=== PATIENT | female | born 1995 | race Caucasian/White ===

== ENCOUNTER → 2017-03-11 | Outpatient (CLI) | payer OTHER ==
[~2017-03-11] MED LIST: METF500T PO; METO50TA PO; TERC0.8C VAGINAL; [UNRECOGNIZED DRUG - OTHER]
== END ==
LOC: HPND 08:19
PROVIDERS: ATTEND Obstetrics & Gynecology
DX: O24.112 Pre-existing type 2 diabetes mellitus, in pregnancy, second trimester (principal); O99.212 Obesity complicating pregnancy, second trimester; E66.01 Morbid (severe) obesity due to excess calories; Z68.41 Body mass index [BMI] 40.0-44.9, adult; O10.912 Unspecified pre-existing hypertension complicating pregnancy, second trimester
CPT/HCPCS: 76811

== ENCOUNTER 2017-04-09 16:24 | Inpatient (IN) | payer OTHER ==
[~2017-04-09] VITALS: Ht 162.6 cm; Wt 107.0 kg
[2017-04-09] MEDS ORDERED: LABE100T2 PO (17:07)
--- NOTE | 2017-04-09 17:43 | HHI.HP ---
HPI Chief Complaint High blood pressures Date Seen: Apr 09, 2017 Time Seen: 17:39 Travel History International Travel<30 Days: No Contact w/Intl Traveler<30Days: No Known Affected Area: No History of Present Illness HPI Patient is a 21-year-old at 22 weeks presenting from clinic with high blood pressure. Follows with care for women. Patient denies vaginal bleeding, leakage of fluid, feeling any contractions, thinks that she feels the baby move. Patient has chronic hypertension. States that blood pressure has been controlled throughout on 100 mg labetalol twice a day Blood pressures were elevated yesterday and today. Patient's blood pressure was elevated in clinic today at 172/96. Yesterday, patient states that her blood pressure 160/101. Patient denies headache, visual disturbance, lower externa swelling. Endorses upper abdominal pain. Has had no abnormal imaging or labs. Patient has diabetes mellitus 2 controlled on metformin 500 twice a day. Patient keeps a blood glucose log, sugar levels have been within normal range. Weeks Gestation: 22 Para: 0 : 1 History Past Medical History Narrative Medical Hypertension-on 100 mg twice a day labetalol Diabetes mellitus 2-metformin 500 twice a day Past Surgical History Surgical History: No Previous Surgery Family History Family History: Negative Social History Alcohol Use: No Tobacco Use: No Substance Abuse: No Allergies-Medications (Allergen,Severity, Reaction): Coded Allergies: No Known Allergies (Unverified Adverse Reaction, Unknown, 04/09/17) Home Meds Active Scripts Metformin (Metformin) 500 Mg Tab, 500 MG PO BIDPC for Blood Sugar Management, # 60 TAB 0 Refills Prov:Colton Mcdonough MD 03/03/17 Reported Medications Labetalol (Labetalol) 100 Mg Tab, 100 MG PO BID for Blood Pressure Management, TAB 0 Refills 04/09/17 Discontinued Reported Medications Metoprolol Tartrate (Metoprolol Tartrate) 50 Mg Tab, 50 MG PO BID, #60 TAB 0 Refills 03/03/17 Discontinued Scripts Terconazole Vaginal Cream (Terconazole Vaginal Cream) 0.8 % Cream, 1 APPL VAGINAL HS for Fungal Infection, #20 GM 0 Refills For 3 days. Prov:Colton Mcdonough MD 03/03/17 Glucose Blood Strip (.[employer]stouch Ultra Blue Strip) Strip Strip, 1 EA .ROUTE DIRECTED for Blood Sugar Management, #1 BOX 3 Refills Prov:Colton Mcdonough MD 01/20/17 Review of Systems Except as stated in HPI: all other systems reviewed are Neg Physical Exam Narrative GENERAL: Well-nourished, well-developed patient. SKIN: Warm and dry. HEAD: Normocephalic and atraumatic. EYES: No scleral icterus. No injection or drainage. NECK: Supple, trachea midline. No JVD. CARDIOVASCULAR: Regular rate and rhythm without murmurs, gallops, or rubs. RESPIRATORY: Breath sounds equal bilaterally. No accessory muscle use. ABDOMEN/GI: Abdomen soft, non-tender, bowel sounds present, no rebound, no guarding GENITOURINARY: Cervix: [-] Dilatation: [-] Effacement: [-] Station: [-] Presentation: [-] Membranes: [intact or ruptured] Uterine Contractions: [-] FHT's: 1:30 EXTREMITIES: No cyanosis or edema. BACK: Nontender without obvious deformity. No CVA tenderness. NEUROLOGICAL: Awake and alert. Motor and sensory grossly within normal limits. Normal speech. Caprini VTE Risk Assessment Caprini VTE Risk Assessment: No/Low Risk (score <= 1) Caprini Risk Assessment Model Point Value = 1 Point Value = 2 Point Value = 3 Point Value = 5 Age 41-60 Minor surgery BMI > 25 kg/m2 Swollen legs Varicose veins or History of unexplained or recurrent spontaneous Oral contraceptives or hormone replacement Sepsis (< 1 month) Serious lung disease, including pneumonia (< 1 month) Abnormal pulmonary function Acute myocardial infarction Congestive heart failure (< 1 month) History of inflammatory bowel disease Medical patient at bed rest Age 61-74 Arthroscopic surgery Major open surgery (> 45 min) Laparoscopic surgery (> 45 min) Malignancy Confined to bed (> 72 hours) Immobilizing plaster cast Central venous access Age >= 75 History of VTE Family history of VTE Factor V Leiden Prothrombin [id number] Lupus anticoagulant Anticardiolipin antibodies Elevated serum homocysteine Heparin-induced thrombocytopenia Other congenital or acquired thrombophilia Stroke (< 1 month) Elective arthroplasty Hip, pelvis, or leg fracture Acute spinal cord injury (< 1 month) Prophylaxis Regimen Total Risk Factor Score Risk Level Prophylaxis Regimen 0-1 Low Early ambulation 2 Moderate Order ONE of the following: *Sequential Compression Device (SCD) *Heparin 5000 units SQ BID 3-4 Higher Order ONE of the following medications: *Heparin 5000 units SQ TID *Enoxaparin/Lovenox 40 mg SQ daily (WT < 150 kg, CrCl > 30 mL/min) *Enoxaparin/Lovenox 30 mg SQ daily (WT < 150 kg, CrCl > 10-29 mL/min) *Enoxaparin/Lovenox 30 mg SQ BID (WT < 150 kg, CrCl > 30 mL/min) AND/OR *Sequential Compression Device (SCD) 5 or more Highest Order ONE of the following medications: *Heparin 5000 units SQ TID (Preferred with Epidurals) *Enoxaparin/Lovenox 40 mg SQ daily (WT < 150 kg, CrCl > 30 mL/min) *Enoxaparin/Lovenox 30 mg SQ daily (WT < 150 kg, CrCl > 10-29 mL/min) *Enoxaparin/Lovenox 30 mg SQ BID (WT < 150 kg, CrCl > 30 mL/min) AND *Sequential Compression Device (SCD) Data Data Vital Signs Reviewed: Yes (blood pressure 149/85) Orders Orders Ob (2e) Additional Admit Info (04/09/17 16:34) Assessment/Plan Problem List: (1) Chronic hypertension ICD Codes: I10 - Essential (primary) hypertension (2) DM2 (diabetes mellitus, type 2) ICD Codes: E11.9 - Type 2 diabetes mellitus without complications (3) with 22 completed weeks gestation ICD Codes: Z3A.22 - 22 weeks gestation of (4) High blood pressure ICD Codes: I10 - Essential (primary) hypertension Assessment and Plan Patient is a 21-year-old at 22 weeks. Admitted for high blood pressure during Blood pressure today 172/96. Blood pressure taken on admission 149/85 heart tones 130, reassuring Patient not in labor 1. High BP reading Labetalol by mouth 200 mg in the a.m., 100 mg in the p.m. 2. Chronic hypertension w/IUP @22 wks Order CMP,CBC,UA, 24-hour protein,Uric acid Order ultrasound 3. Diabetes mellitus too Continue metformin 500 twice a day Order 2 hour postprandials Order A1c DW Dr. Derrick Jacinto,Erin Saenz MD R1 Apr 09, 2017 17:43
[2017-04-09] MEDS ORDERED: SODIUM CHLORIDE 0.9% FLUSH 10 ML FLUSH IV FLUSH PRN (18:00)
[2017-04-09] MEDS: LABETALOL HCL 100 MG TAB PO SCH (19:23)
[2017-04-09] MEDS: LACTATED RINGER'S 1000 ML INJ 1,000 ML IV SCH (20:17)
[2017-04-09] MEDS: metFORMIN HCL 500 MG TAB PO SCH (20:17)
[2017-04-09] MEDS: SODIUM CHLORIDE 0.9% FLUSH 10 ML FLUSH IV FLUSH SCH (20:18)
[2017-04-09 21:09] LABS: HEMATOCRIT 36.4 % (35.0-46.0); HEMOGLOBIN 12.1 GM/DL (11.6-15.3); MEAN CELL VOLUME 87.7 FL (80.0-100.0); MEAN CORPUSCULAR HEMOGLOBIN 29.2 PG (27.0-34.0); MEAN CORPUSCULAR HGB CONC 33.3 % (32.0-36.0); MEAN PLATELET VOLUME 10.7 FL (7.0-11.0); PLATELET COUNT 284 TH/MM3 (150-450); RED BLOOD COUNT 4.15 MIL/MM3 (4.00-5.30); RED CELL DISTRIBUTION WIDTH 12.5 % (11.6-17.2); WHITE BLOOD COUNT 12.1 TH/MM3 (4.0-11.0)
[2017-04-09 21:13] LABS: BACTERIA, URINE RARE /hpf; BILIRUBIN, URINE NEG (NEG); BLOOD, URINE NEG (NEG); GLUCOSE,URINE NEG (NEG); KETONE, URINE NEG (NEG); NITRITE,URINE NEG (NEG); SQUAMOUS EPITHELIAL CELL URINE 1 /hpf (0-5); URINE COLOR LIGHT-YELLOW (YELLW/STRAW); URINE LEUKOCYTE ESTERASE NEG (NEG)
[2017-04-09 21:26] LABS: ALBUMIN 2.8 GM/DL (3.4-5.0); ALT (GPT) 22 U/L (10-53); AST (GOT) 22 U/L (15-37); BICARBONATE 21.4 MEQ/L (21.0-32.0); BLOOD UREA NITROGEN 7 MG/DL (7-18); CALCIUM 9.3 MG/DL (8.5-10.1); CHLORIDE 104 MEQ/L (98-107); CREATININE 0.41 MG/DL (0.50-1.00); GLOMERULAR FILTRATION RATE 192 ML/MIN (>89); GLUCOSE,RANDOM 77 MG/DL (74-106); SODIUM (NA) 137 MEQ/L (136-145)
[2017-04-09 21:29] LABS: ALKALINE PHOSPHATASE 52 U/L (45-117); TOTAL BILIRUBIN ADULT 0.3 MG/DL (0.2-1.0); TOTAL PROTEIN 8.1 GM/DL (6.4-8.2)
[2017-04-10] MEDS: LABETALOL HCL 200 MG TAB PO SCH (05:58)
[2017-04-10] MEDS: LACTATED RINGER'S 1000 ML INJ 1,000 ML IV SCH ×2 (05:59→20:32)
[2017-04-10] MEDS: SODIUM CHLORIDE 0.9% FLUSH 10 ML FLUSH IV FLUSH SCH ×2 (07:15→21:00)
--- NOTE | 2017-04-10 08:04 | PD.OB.ANTE ---
Subjective Diagnosis: (1) Chronic hypertension Diagnosis: Principal (2) DM2 (diabetes mellitus, type 2) Diagnosis: Secondary (3) with 22 completed weeks gestation Diagnosis: Secondary Interval History Patient states that she is feeling a little bit fatigued; however, overall well. Antepartum ROS: Reports: Other (no new complaints) Objective Vital Signs Intake & Output 04/10/17 04/10/17 07:00 19:00 Intake Total 100 ml Balance 100 ml Intake Oral 100 ml Lab & Micro Results Test 04/09/17 19:55 White Blood Count 12.1 TH/MM3 Red Blood Count 4.15 MIL/MM3 Hemoglobin 12.1 GM/DL Hematocrit 36.4 % Mean Corpuscular Volume 87.7 FL Mean Corpuscular Hemoglobin 29.2 PG Mean Corpuscular Hemoglobin Concent 33.3 % Red Cell Distribution Width 12.5 % Platelet Count 284 TH/MM3 Mean Platelet Volume 10.7 FL Urine Color LIGHT-YELLOW Urine Turbidity CLEAR Urine pH 6.0 Urine Specific [place] 1.005 Urine Protein TRACE mg/dL Urine Glucose (UA) NEG mg/dL Urine Ketones NEG mg/dL Urine Occult Blood NEG Urine Nitrite NEG Urine Bilirubin NEG Urine Urobilinogen LESS THAN 2.0 MG/DL Urine Leukocyte Esterase NEG Urine Squamous Epithelial Cells 1 /hpf Urine Bacteria RARE /hpf Microscopic Urinalysis Comment CATH-CULTURE IND Blood Urea Nitrogen 7 MG/DL Creatinine 0.41 MG/DL Random Glucose 77 MG/DL Total Protein 8.1 GM/DL Albumin 2.8 GM/DL Calcium Level 9.3 MG/DL Uric Acid 4.8 MG/DL Alkaline Phosphatase 52 U/L Aspartate Amino Transf (AST/SGOT) 22 U/L Alanine Aminotransferase (ALT/SGPT) 22 U/L Total Bilirubin 0.3 MG/DL Sodium Level 137 MEQ/L Potassium Level 3.5 MEQ/L Chloride Level 104 MEQ/L Carbon Dioxide Level 21.4 MEQ/L Anion Gap 12 MEQ/L Estimat Glomerular Filtration Rate 192 ML/MIN Hemoglobin A1c 6.0 % Date/Time Source Procedure Growth Status 04/09/17 19:55 Urine Catheterized Urine Urine Culture Pending Received Physical Exam GENERAL: Well-nourished, well-developed patient. CARDIOVASCULAR: Regular rate and rhythm without murmurs, gallops, or rubs. RESPIRATORY: Breath sounds equal bilaterally. No accessory muscle use. ABDOMEN/GI: Abdomen soft, non-tender. GENITOURINARY: Deferred EXTREMITIES: No cyanosis or edema, non-tender, without signs of DVT. Assessment and Plan Problem List: (1) Chronic hypertension ICD Codes: I10 - Essential (primary) hypertension (2) DM2 (diabetes mellitus, type 2) ICD Codes: E11.9 - Type 2 diabetes mellitus without complications (3) with 22 completed weeks gestation ICD Codes: Z3A.22 - 22 weeks gestation of (4) High blood pressure ICD Codes: I10 - Essential (primary) hypertension Assessment and Plan Patient is a 21-year-old at 22 weeks. Admitted for high blood pressure during . Besides some upper abdominal pain on admission, patient is asymptomatic Blood pressure in clinic before admission 172/96. Blood pressure taken on admission 149/85 1. Chronic hypertension w/IUP @22 wks BP overnight 129/71-142/78 No signs of end organ damage based on CMP, CBC, UA Last night, started labetalol by mouth 200 mg in the a.m. and 100 mg in the p.m. Plan to monitor BP throughout today. Ultrasound and 24 hour urine protein pending 2. Diabetes mellitus 2 - controlled Continue metformin 500 twice a day 2 hour postprandial yesterday was 94 A1c of 6.0, indicating good control Discharge planning pending ultrasound and 24 hour urine protein. Will continue to monitor blood pressures. NICHOLAS Meza Update @13:08 US report @10:37: Single intrauterine in cephalic presentation Normal heart and rhythm. Normal amniotic fluid. movement observed. Transvaginal cervical length within normal limits measuring 44 mm long. No funneling observed. Patient is scheduled April 15, 2017 for echocardiogram and growth with MFM. Erin Jacinto MD R1 Apr 10, 2017 08:04
[2017-04-10] MEDS: metFORMIN HCL 500 MG TAB PO SCH ×2 (09:52→17:40)
[2017-04-10] MEDS ORDERED: INFLUENZA VIRUS VACCINE (QUADRIVALENT) 0.5 ML SYR IM ONE (10:00)
[2017-04-10] MEDS: LABETALOL HCL 100 MG TAB PO SCH (17:40)
[2017-04-10 23:20] LABS: CREATININE 24 HOUR, URINE 1.4 GM/24HR (0.63-2.50)
[2017-04-11] MEDS: LABETALOL HCL 200 MG TAB PO SCH (06:14)
--- NOTE | 2017-04-11 08:30 | PD.OB.ANTE ---
Subjective Diagnosis: (1) Chronic hypertension Diagnosis: Principal (2) DM2 (diabetes mellitus, type 2) Diagnosis: Secondary (3) with 22 completed weeks gestation Diagnosis: Secondary Interval History Patient is a 21 year old at 23 and 0/7 weeks today, EDC 08/08/2017, admitted to observation for elevated BPs. History chronic HTN on labetolol 100mg BID. Follows with [facility]. Also GDM, diet controlled. BSG reviewed and 70s to 110s fasting and max 2 hr post-prandial. Feeling well with no complaints today. Eager to go home. Antepartum ROS: Reports: movement normal, Denies: New complaints, Loss of fluid, Vaginal bleeding, Contractions Objective Lab & Micro Results Test 04/10/17 22:00 Urine Total Volume 24 Hours 3350 ML Urine Creatinine 24 Hour 1.40 GM/24HR Urine Total Protein 24 Hour 482 MG/24HR Date/Time Source Procedure Growth Status 04/09/17 19:55 Urine Catheterized Urine Urine Culture - Final 10-50,000 CFU/ML MIXED GRAM POSITIVE ... Complete Physical Exam GENERAL: Well-nourished, well-developed female in no apparent distress. CARDIOVASCULAR: Regular rate and rhythm without murmurs, gallops, or rubs. RESPIRATORY: Breath sounds equal bilaterally. No accessory muscle use. ABDOMEN/GI: Abdomen soft, non-tender. Fundus: palpates soft. GENITOURINARY: deferred External Genitalia: deferred FHT's: intermittent monitoring, category 1 tracing, HR 150s EXTREMITIES: No cyanosis or edema, non-tender, without signs of DVT. Assessment and Plan Problem List: (1) Chronic hypertension ICD Codes: I10 - Essential (primary) hypertension (2) DM2 (diabetes mellitus, type 2) ICD Codes: E11.9 - Type 2 diabetes mellitus without complications (3) with 22 completed weeks gestation ICD Codes: Z3A.22 - 22 weeks gestation of Assessment and Plan Patient is a 21-year-old at 23 weeks 0/7 days gestation. Chronic HTN. Gestational DM. Admitted for high blood pressure during . Asymptomatic today. Blood pressure in clinic before admission 172/96. Blood pressure taken on admission 149/85. 1. Chronic hypertension w/IUP @23 wks BP overnight 140s/80s No signs of end organ damage based on CMP, CBC, UA 24 hr urine protein 482 US showing single IUP, no noted abnormalities, normal cervical length, recommendation for echo per preliminary report Last night, started labetalol by mouth 200 mg in the a.m. and 100 mg in the p.m. BP controlled on this regimen Continue routine care with [facility] 2. Diabetes mellitus 2 - diet-controlled Continue metformin 500 twice a day Fasting and 2 hour postprandial BSG wnl A1c of 6.0, indicating good control Discharge planning: likely discharge today with scheduled OB US April 15, 2017. Close OB follow up. Will require regular BPPs with NST scheduled in third trimester. Maryann Treviño Dr., MD R2 Apr 11, 2017 08:30
[2017-04-11] MEDS: metFORMIN HCL 500 MG TAB PO SCH (08:47)
--- NOTE | 2017-04-11 08:59 | HHI.DCPOC ---
Discharge Care Plan Diagnosis: (1) Chronic hypertension (2) DM2 (diabetes mellitus, type 2) (3) with 22 completed weeks gestation Report Symptoms to Your Doctor -Temperature above 100.5 degrees -Redness, of incision or excessive or foul smelling drainage -Unusual pain or calf pain -Increased vaginal bleeding -Painful or difficulty urinating -Feelings of extreme sadness or anxiety after 2 weeks Goals to Promote Your Health * To prevent worsening of your condition and complications * To maintain your health at the optimal level Directions to Meet Your Goals Take your medications as prescribed Follow your dietary instruction Follow activity as directed Ensure plenty of rest for recovery Drink fluids for hydration Keep your appointments as scheduled Take your immunizations and boosters as scheduled If your symptoms worsen call your PCP, if no PCP go to Urgent Care Center or Emergency Room Smoking is Dangerous to Your Health. Avoid second hand smoke Call the 24-hour crisis hotline for domestic abuse at Maryann King MD R2 Apr 11, 2017 08:59
[2017-04-11] MEDS ORDERED: LABE100T2 PO (09:01)
[2017-04-28] MEDS ORDERED: METF500T PO (13:06)
== END 2017-04-11 09:41 | disposition home or self-care (01) | DRG 781 ==
LOC: HOBED 16:24 → H2EA 16:38
PROVIDERS: ADMIT Obstetrics & Gynecology Maternal & Fetal Medicine; ATTEND Obstetrics & Gynecology Maternal & Fetal Medicine
DX: O10.912 Unspecified pre-existing hypertension complicating pregnancy, second trimester (principal); O24.112 Pre-existing type 2 diabetes mellitus, in pregnancy, second trimester; Z3A.23 23 weeks gestation of pregnancy; Z23 Encounter for immunization; Z79.84 Long term (current) use of oral hypoglycemic drugs; E11.9 Type 2 diabetes mellitus without complications
CPT/HCPCS: 76815; 76817; 80053; 81001; 82570; 82948; 83036; 84157; 84550; 85027; 87086; 90686; J7120; Q2038

== ENCOUNTER → 2017-04-15 | Outpatient (CLI) | payer OTHER ==
[~2017-04-15] MED LIST changes: +LABE100T2 PO; -METO50TA PO; -TERC0.8C VAGINAL; -[UNRECOGNIZED DRUG - OTHER]
== END ==
LOC: HPND 08:14
PROVIDERS: ATTEND Obstetrics & Gynecology
DX: O24.112 Pre-existing type 2 diabetes mellitus, in pregnancy, second trimester (principal); O10.012 Pre-existing essential hypertension complicating pregnancy, second trimester; O99.212 Obesity complicating pregnancy, second trimester; E66.01 Morbid (severe) obesity due to excess calories; Z68.41 Body mass index [BMI] 40.0-44.9, adult
CPT/HCPCS: 76816; 76825; 76827; 93325

== ENCOUNTER → 2017-05-08 | Outpatient (CLI) | payer OTHER | LOC: CDED 10:17 | PROVIDERS: ATTEND Obstetrics & Gynecology | DX: O24.113 Pre-existing type 2 diabetes mellitus, in pregnancy, third trimester (principal) | CPT/HCPCS: 97802 ==

== ENCOUNTER → 2017-05-13 | Outpatient (CLI) | payer OTHER | LOC: HPND 09:16 | PROVIDERS: ATTEND Obstetrics & Gynecology | DX: O24.112 Pre-existing type 2 diabetes mellitus, in pregnancy, second trimester (principal); O10.012 Pre-existing essential hypertension complicating pregnancy, second trimester; O99.212 Obesity complicating pregnancy, second trimester; E66.01 Morbid (severe) obesity due to excess calories; Z68.41 Body mass index [BMI] 40.0-44.9, adult | CPT/HCPCS: 76816 ==

== ENCOUNTER 2017-06-18 09:28 | Observation (INO) | payer OTHER ==
[~2017-06-18] VITALS: Ht 162.6 cm; Wt 106.6 kg
[2017-06-18] VITALS (69 sets, daily range): BP systolic 133–181; BP diastolic 63–101; PULSE 77–89; RESP 17–18; TEMP 98.7
[2017-06-18] MEDS ORDERED: SODIUM CHLORIDE 0.9% FLUSH 10 ML FLUSH IV FLUSH PRN (10:30)
[2017-06-18] MEDS ORDERED: LABETALOL HCL 200 MG TAB PO ONE ×2 (10:30→18:30)
--- NOTE | 2017-06-18 10:33 | PD ---
HPI Chief Complaint Sent by OB diagnostics due to high blood pressure Travel History International Travel<30 Days: No Contact w/Intl Traveler<30Days: No History of Present Illness HPI Patient is a 21-year-old at 32/5 presents today from OB diagnostics due to high blood pressure. Patient has a past history of DM II, chronic hypertension. Currently she reports that she has had 2 headaches in the past 4 days, had spots in her vision on Thursday which has since resolved, mild right upper abdominal pain which has been present for most of the . Denies large gushes of fluid, contractions, bloody or abnormal colored/smelling discharge, dysuria, hematuria. Reports that her urine has been darker for the past week, states she drinks approximately 1.5 gallons of water a day, and notes that her urine has been "bubbly" for this past week as well. Denies nausea, vomiting, fever, chills, chest pain, shortness of breath. No other complaints at this time. Weeks Gestation: 32 Para: 0 : 1 Miscarriage: 0 : 0 History Past Medical History Narrative Medical DM II HTN Past Surgical History Surgical History: No Previous Surgery Family History Narrative Family History HTN-father DM-maternal grandparents Social History Alcohol Use: No Tobacco Use: No Substance Abuse: No Allergies-Medications (Allergen,Severity, Reaction): Coded Allergies: No Known Allergies (Unverified Allergy, Unknown, 06/18/17) Home Meds Active Scripts Labetalol (Labetalol) 100 Mg Tab, 100 MG PO DIRECTED for Blood Pressure Management, #90 TAB 1 Refill Take 200mg (two tabs) in the morning, and take 100mg (one tab) at night. Prov:Colton Mcdonough MD 05/12/17 Metformin (Metformin) 500 Mg Tab, 500 MG PO BIDPC for Blood Sugar Management, # 60 TAB 0 Refills Prov:Colton Mcdonough MD 04/28/17 Review of Systems General / Constitutional: No: Fever, Chills Eyes: Visual changes (Spots in vision 3 days ago), No: Diploplia, Blurred Vision Cardiovascular: No: Irregular Rhythm, Chest Pain or Discomfort, Palpitations, Syncope Respiratory: No: Cough, Short of Breath, Wheezing Gastrointestinal: No: Nausea, Vomiting, Diarrhea, Abdominal Pain, Hematemesis, Hematochezia, Constipation, Changes in Bowel Habits, Indigestion Genitourinary: Other ("bubbly urine" x 1 week), No: Urgency, Frequency, Dysuria , Nocturia, Hematuria Musculoskeletal: No: Limited ROM, Weakness Skin: No Rash, No Itching, No Dryness Neurologic: No: Weakness, Dizziness Psychiatric: No: Anxiety, Depression Endocrine: No: Polydipsia, Polyuria Hematologic/Lymphatic: No Lymph Node Enlargement Physical Exam Narrative GENERAL: Well-nourished, well-developed patient. SKIN: Warm and dry. HEAD: Normocephalic and atraumatic. EYES: No scleral icterus. No injection or drainage. ENT: No nasal drainage noted. Mucous membranes pink. Airway patent. NECK: Supple, trachea midline. No JVD. CARDIOVASCULAR: Regular rate and rhythm without murmurs, gallops, or rubs. RESPIRATORY: Breath sounds equal bilaterally. No accessory muscle use. ABDOMEN/GI: Abdomen soft, non-tender, bowel sounds present, no rebound, no guarding GENITOURINARY: External Genitalia: intact and normal in appearance FHT's: Category: 1 Baseline: 140 Reactive: Yes Variability: Moderate Decels: None EXTREMITIES: No cyanosis or edema. BACK: Nontender without obvious deformity. No CVA tenderness. NEUROLOGICAL: Awake and alert. Motor and sensory grossly within normal limits. Five out of 5 muscle strength in all muscle groups. Normal speech. Data Data Vital Signs Reviewed: Yes Orders Orders Labetalol (Trandate) (06/18/17 10:30) ^ Saline Lock (06/18/17 10:22) Vital Signs (Adult) .ON ADMISSION (06/18/17 10:22) ^ Labor Status (06/18/17 10:22) Heart (06/18/17 10:22) Urinalysis - C+S If Indicated (06/18/17 10:22) ^ Non Stress Test (06/18/17 10:22) ^ Hydration (06/18/17 10:22) Cbc No Diff, Includes Plts (06/18/17 10:22) Comprehensive Metabolic Panel (06/18/17 10:22) Ob/Psych Drug Screen, Urine (06/18/17 10:22) Group B Strep: Negative MDM Plan Patient is a 21-year-old at 32/5 who presents for elevated blood pressures from OB diagnostics. Patient continued to have elevated blood pressures in the OB ED. Past elevated 24 hour urine protein 482 on 04/10/17. Without severe signs/symptoms of preeclampsia today. H/H 13.6/38.0, platelets 232, AST 20, ALT 30, UA with trace protein. -admit for observation -Follow-up 24 hour urine protein collection -monitor FHT -FHT category 1, reassuring -Encourage p.o. hydration DW Dr. Donald Diagnosis Diagnosis: Primary Impression: Pre-eclampsia superimposed on chronic hypertension, antepartum Additional Impression: 32 weeks gestation of Vinay Flores MD R1 Jun 18, 2017 10:33
[2017-06-18] MEDS ORDERED: CALCIUM GLUCONATE 10% 1 GM/10 ML VIAL IV PUSH PRN (11:00)
[2017-06-18 11:09] LABS: HEMOGLOBIN 13.6 GM/DL (11.6-15.3); MEAN CORPUSCULAR HEMOGLOBIN 30.3 PG (27.0-34.0); MEAN CORPUSCULAR HGB CONC 35.7 % (32.0-36.0); MEAN PLATELET VOLUME 10.8 FL (7.0-11.0); PLATELET COUNT 232 TH/MM3 (150-450); RED BLOOD COUNT 4.47 MIL/MM3 (4.00-5.30); RED CELL DISTRIBUTION WIDTH 12.6 % (11.6-17.2); WHITE BLOOD COUNT 10.8 TH/MM3 (4.0-11.0)
[2017-06-18 11:15] LABS: BACTERIA, URINE RARE /hpf; BILIRUBIN, URINE NEG (NEG); BLOOD, URINE NEG (NEG); GLUCOSE,URINE NEG (NEG); KETONE, URINE NEG (NEG); MUCUS URINE FEW /lpf (OCC); NITRITE,URINE NEG (NEG); PH, URINE 5.5 (5.0-8.5); SQUAMOUS EPITHELIAL CELL URINE 2 /hpf (0-5); URINE COLOR YELLOW (YELLW/STRAW); URINE LEUKOCYTE ESTERASE NEG (NEG)
[2017-06-18 11:24] LABS: ALBUMIN 2.6 GM/DL (3.4-5.0); ALT (GPT) 30 U/L (10-53); AST (GOT) 20 U/L (15-37); BICARBONATE 21.6 MEQ/L (21.0-32.0); BLOOD UREA NITROGEN 10 MG/DL (7-18); CALCIUM 8.9 MG/DL (8.5-10.1); CHLORIDE 106 MEQ/L (98-107); CREATININE 0.51 MG/DL (0.50-1.00); GLOMERULAR FILTRATION RATE 149 ML/MIN (>89); GLUCOSE,RANDOM 102 MG/DL (74-106); SODIUM (NA) 137 MEQ/L (136-145)
[2017-06-18 11:26] LABS: ALKALINE PHOSPHATASE 74 U/L (45-117); TOTAL BILIRUBIN ADULT 0.3 MG/DL (0.2-1.0); TOTAL PROTEIN 7.5 GM/DL (6.4-8.2)
[2017-06-18] MEDS: LACTATED RINGER'S 1000 ML INJ 1,000 ML IV SCH (11:49)
--- NOTE | 2017-06-18 12:06 | HHI.HP ---
History & Physical H&P HPI HPI Chief Complaint Sent by OB diagnostics due to high blood pressure Travel History International Travel<30 Days: No Contact w/Intl Traveler<30Days: No History of Present Illness HPI Patient is a 21-year-old at 32/5 presents today from OB diagnostics due to high blood pressure. Patient has a past history of DM II, chronic hypertension. Currently she reports that she has had 2 headaches in the past 4 days, had spots in her vision on Thursday which has since resolved, mild right upper abdominal pain which has been present for most of the . Denies large gushes of fluid, contractions, bloody or abnormal colored/smelling discharge, dysuria, hematuria. Reports that her urine has been darker for the past week, states she drinks approximately 1.5 gallons of water a day, and notes that her urine has been "bubbly" for this past week as well. Denies nausea, vomiting, fever, chills, chest pain, shortness of breath. No other complaints at this time. Weeks Gestation: 32 Para: 0 : 1 Miscarriage: 0 : 0 History (Limited) History Past Medical History Narrative Medical DM II HTN Past Surgical History Surgical History: No Previous Surgery Family History Narrative Family History HTN-father DM-maternal grandparents Social History Alcohol Use: No Tobacco Use: No Substance Abuse: No Allergies-Medications Allergies-Medications (Allergen,Severity, Reaction): Coded Allergies: No Known Allergies (Unverified Allergy, Unknown, 06/18/17) Home Meds Active Scripts Labetalol (Labetalol) 100 Mg Tab, 100 MG PO DIRECTED for Blood Pressure Management, #90 TAB 1 Refill Take 200mg (two tabs) in the morning, and take 100mg (one tab) at night. Prov:Colton Mcdonough MD 05/12/17 Metformin (Metformin) 500 Mg Tab, 500 MG PO BIDPC for Blood Sugar Management, # 60 TAB 0 Refills Prov:Colton Mcdonough MD 04/28/17 ROS Review of Systems General / Constitutional: No: Fever, Chills Eyes: Visual changes (Spots in vision 3 days ago), No: Diploplia, Blurred Vision Cardiovascular: No: Irregular Rhythm, Chest Pain or Discomfort, Palpitations, Syncope Respiratory: No: Cough, Short of Breath, Wheezing Gastrointestinal: No: Nausea, Vomiting, Diarrhea, Abdominal Pain, Hematemesis, Hematochezia, Constipation, Changes in Bowel Habits, Indigestion Genitourinary: Other ("bubbly urine" x 1 week), No: Urgency, Frequency, Dysuria , Nocturia, Hematuria Musculoskeletal: No: Limited ROM, Weakness Skin: No Rash, No Itching, No Dryness Neurologic: No: Weakness, Dizziness Psychiatric: No: Anxiety, Depression Endocrine: No: Polydipsia, Polyuria Hematologic/Lymphatic: No Lymph Node Enlargement Physical Exam Physical Exam Narrative GENERAL: Well-nourished, well-developed patient. SKIN: Warm and dry. HEAD: Normocephalic and atraumatic. EYES: No scleral icterus. No injection or drainage. ENT: No nasal drainage noted. Mucous membranes pink. Airway patent. NECK: Supple, trachea midline. No JVD. CARDIOVASCULAR: Regular rate and rhythm without murmurs, gallops, or rubs. RESPIRATORY: Breath sounds equal bilaterally. No accessory muscle use. ABDOMEN/GI: Abdomen soft, non-tender, bowel sounds present, no rebound, no guarding GENITOURINARY: External Genitalia: intact and normal in appearance FHT's: Category: 1 Baseline: 140 Reactive: Yes Variability: Moderate Decels: None EXTREMITIES: No cyanosis or edema. BACK: Nontender without obvious deformity. No CVA tenderness. NEUROLOGICAL: Awake and alert. Motor and sensory grossly within normal limits. Five out of 5 muscle strength in all muscle groups. Normal speech. Data Data Data Vital Signs Reviewed: Yes Orders Orders Labetalol (Trandate) (06/18/17 10:30) ^ Saline Lock (06/18/17 10:22) Vital Signs (Adult) .ON ADMISSION (06/18/17 10:22) ^ Labor Status (06/18/17 10:22) Heart (06/18/17 10:22) Urinalysis - C+S If Indicated (06/18/17 10:22) ^ Non Stress Test (06/18/17 10:22) ^ Hydration (06/18/17 10:22) Cbc No Diff, Includes Plts (06/18/17 10:22) Comprehensive Metabolic Panel (06/18/17 10:22) Ob/Psych Drug Screen, Urine (06/18/17 10:22) Group B Strep: Negative MDM MDM Plan Patient is a 21-year-old at 32/5 who presents for elevated blood pressures from OB diagnostics. Patient continued to have elevated blood pressures in the OB ED. Past elevated 24 hour urine protein 482 on 04/10/17. Without severe signs/symptoms of preeclampsia today. H/H 13.6/38.0, platelets 232, AST 20, ALT 30, UA with trace protein. -admit for observation -Follow-up 24 hour urine protein collection -monitor FHT -FHT category 1, reassuring -Encourage p.o. hydration DM -Continue home metformin HTN -Continue home labetalol NICHOLAS Donald Diagnosis Diagnosis: Primary Impression: Pre-eclampsia superimposed on chronic hypertension, antepartum Additional Impression: 32 weeks gestation of Vinay Flores MD R1 Jun 18, 2017 12:06
[2017-06-18] MEDS ORDERED: LABETALOL HCL 100 MG/20 ML VIAL ONE (13:14)
[2017-06-18] MEDS: LABETALOL HCL 100 MG TAB PO SCH (14:50)
[2017-06-18] MEDS ORDERED: LABETALOL HCL 100 MG/20 ML VIAL IV PUSH ONE ×3 (15:00→16:45)
[2017-06-18] MEDS ORDERED: PREN29TA PO (15:02)
[2017-06-18] MEDS ORDERED: LABETALOL HCL 100 MG/20 ML VIAL IV ONE (15:15)
[2017-06-18] MEDS: BETAMETHASONE SOD PHOS/ACETATE SUSP 30 MG/5 ML VIAL IM SCH (16:41)
[2017-06-18] MEDS: metFORMIN HCL 500 MG TAB PO SCH (18:14)
[2017-06-18] MEDS: SODIUM CHLORIDE 0.9% FLUSH 10 ML FLUSH IV FLUSH SCH (21:00)
[2017-06-18 21:58] LABS: ALBUMIN 2.5 GM/DL (3.4-5.0); ALT (GPT) 32 U/L (10-53); AST (GOT) 18 U/L (15-37); BICARBONATE 19.9 MEQ/L (21.0-32.0); BLOOD UREA NITROGEN 12 MG/DL (7-18); CALCIUM 9.5 MG/DL (8.5-10.1); CHLORIDE 106 MEQ/L (98-107); GLOMERULAR FILTRATION RATE 89 ML/MIN (>89); GLUCOSE,RANDOM 131 MG/DL (74-106); SODIUM (NA) 137 MEQ/L (136-145)
[2017-06-18 22:01] LABS: ALKALINE PHOSPHATASE 74 U/L (45-117); TOTAL BILIRUBIN ADULT 0.3 MG/DL (0.2-1.0); TOTAL PROTEIN 7.2 GM/DL (6.4-8.2)
[2017-06-18 22:47] LABS: BASOPHIL % 0.2 % (0.0-2.0); EOSINOPHIL % 0.1 % (0.0-4.0); HEMATOCRIT 38.1 % (35.0-46.0); HEMOGLOBIN 13.2 GM/DL (11.6-15.3); LYMPH % 12.9 % (9.0-44.0); LYMPHOCYTE # 1.5 TH/MM3 (1.0-4.8); MEAN CELL VOLUME 86.7 FL (80.0-100.0); MEAN CORPUSCULAR HEMOGLOBIN 30.1 PG (27.0-34.0); MEAN CORPUSCULAR HGB CONC 34.7 % (32.0-36.0); MEAN PLATELET VOLUME 11.3 FL (7.0-11.0); MONO % 2.3 % (0.0-8.0); MONOCYTE # 0.3 TH/MM3 (0-0.9); NEUT % 84.5 % (16.0-70.0); PLATELET COUNT 235 TH/MM3 (150-450); RED BLOOD COUNT 4.39 MIL/MM3 (4.00-5.30); RED CELL DISTRIBUTION WIDTH 12.9 % (11.6-17.2); WHITE BLOOD COUNT 11.8 TH/MM3 (4.0-11.0)
[2017-06-19] VITALS (35 sets, daily range): BP systolic 123–159; BP diastolic 62–90; PULSE 81–93; RESP 16–18; TEMP 97.8–98.4
[2017-06-19 06:15] LABS: AUTOMATED NEUTROPHIL # 9.9 TH/MM3 (1.8-7.7); BASOPHIL % 0.1 % (0.0-2.0); HEMATOCRIT 36.7 % (35.0-46.0); HEMOGLOBIN 12.6 GM/DL (11.6-15.3); LYMPH % 15.1 % (9.0-44.0); LYMPHOCYTE # 1.8 TH/MM3 (1.0-4.8); MEAN CELL VOLUME 85.9 FL (80.0-100.0); MEAN CORPUSCULAR HEMOGLOBIN 29.5 PG (27.0-34.0); MEAN CORPUSCULAR HGB CONC 34.4 % (32.0-36.0); MEAN PLATELET VOLUME 11.3 FL (7.0-11.0); MONO % 2.8 % (0.0-8.0); MONOCYTE # 0.3 TH/MM3 (0-0.9); PLATELET COUNT 232 TH/MM3 (150-450); RED BLOOD COUNT 4.28 MIL/MM3 (4.00-5.30); RED CELL DISTRIBUTION WIDTH 12.8 % (11.6-17.2); WHITE BLOOD COUNT 12.1 TH/MM3 (4.0-11.0)
[2017-06-19 06:33] LABS: ALBUMIN 2.4 GM/DL (3.4-5.0); ALT (GPT) 29 U/L (10-53); AST (GOT) 17 U/L (15-37); BICARBONATE 21.3 MEQ/L (21.0-32.0); BLOOD UREA NITROGEN 12 MG/DL (7-18); CALCIUM 8.9 MG/DL (8.5-10.1); CHLORIDE 107 MEQ/L (98-107); CREATININE 0.56 MG/DL (0.50-1.00); GLOMERULAR FILTRATION RATE 134 ML/MIN (>89); GLUCOSE,RANDOM 126 MG/DL (74-106); SODIUM (NA) 140 MEQ/L (136-145)
[2017-06-19 06:36] LABS: ALKALINE PHOSPHATASE 69 U/L (45-117); TOTAL BILIRUBIN ADULT 0.2 MG/DL (0.2-1.0)
[2017-06-19] MEDS: SODIUM CHLORIDE 0.9% FLUSH 10 ML FLUSH IV FLUSH SCH (07:48)
[2017-06-19] MEDS: LABETALOL HCL 200 MG TAB PO SCH ×2 (08:00→08:28)
[2017-06-19] MEDS: MULTIVIT/MIN/PREN/FOL AC/IRON PRENATAL TAB PO SCH (08:27)
[2017-06-19] MEDS: metFORMIN HCL 500 MG TAB PO SCH ×2 (08:27→18:06)
[2017-06-19] MEDS: LACTATED RINGER'S 1000 ML INJ 1,000 ML IV SCH ×2 (08:28→18:06)
[2017-06-19] MEDS ORDERED: LABETALOL HCL 200 MG TAB PO ONE (08:30)
--- NOTE | 2017-06-19 08:59 | PD.OB.ANTE ---
Subjective Diagnosis: (1) 32 weeks gestation of Diagnosis: Principal Interval History Patient seen and examined this morning by OB team. Patient's BP remains elevated requiring multiple doses of Labetalol overnight. Otherwise no acute events overnight. She endorses good movement and denies any vaginal bleeding, vaginal discharge, loss of fluid, right upper quadrant pain, neurologic symptoms, or dysuria. Patient has continued with 24-hour urine collection which will be completed at 1000 today. Otherwise she has no complaints and denies any fevers, chills, shortness breath, chest pain, NVD, vomiting, or calf tenderness. Antepartum ROS: Reports: movement normal, Denies: New complaints, Loss of fluid, Vaginal bleeding, Contractions Objective Vital Signs Vital Signs Date Time Temp Pulse Resp B/P (MAP) Pulse Ox O2 Delivery O2 Flow Rate FiO2 06/19/17 01:02 92 128/64 (85) 06/19/17 01:00 98.4 18 06/19/17 00:01 93 132/79 (96) 06/18/17 23:01 87 147/86 (106) 06/18/17 22:18 80 143/80 (101) 06/18/17 22:01 83 149/88 (108) 06/18/17 21:35 18 06/18/17 21:01 79 133/68 (89) 06/18/17 20:01 81 133/68 (89) 06/18/17 19:58 79 138/63 (88) 06/18/17 19:35 98.7 06/18/17 19:30 82 18 06/18/17 19:30 139/68 (91) 06/18/17 19:27 82 156/91 (112) 06/18/17 18:01 81 160/94 (116) 06/18/17 18:00 98.7 17 06/18/17 17:16 80 173/99 (123) 06/18/17 17:15 81 06/18/17 17:10 81 06/18/17 17:05 83 06/18/17 17:00 79 161/86 (111) 06/18/17 16:55 77 06/18/17 16:52 79 151/85 (107) 06/18/17 16:50 79 06/18/17 16:46 78 181/101 (127) 06/18/17 16:45 83 3/8/18 16:40 83 06/18/17 16:35 87 06/18/17 16:31 79 169/93 (118) 06/18/17 16:30 84 06/18/17 16:25 79 06/18/17 16:20 79 06/18/17 16:16 83 170/95 (120) 06/18/17 16:15 87 06/18/17 16:10 81 06/18/17 16:05 82 06/18/17 16:01 80 173/96 (121) 06/18/17 16:00 80 06/18/17 15:55 81 06/18/17 15:54 84 173/97 (122) 06/18/17 15:50 80 06/18/17 15:46 80 162/91 (114) 06/18/17 15:45 79 06/18/17 15:40 79 06/18/17 15:35 87 06/18/17 15:31 84 162/96 (118) 06/18/17 15:30 86 06/18/17 15:25 85 06/18/17 15:20 84 06/18/17 15:16 85 168/91 (116) 06/18/17 15:15 88 06/18/17 15:01 88 165/85 (111) 06/18/17 15:00 87 06/18/17 14:55 86 06/18/17 14:50 85 06/18/17 14:46 89 171/82 (111) 06/18/17 14:37 88 166/83 (110) 06/18/17 14:37 18 06/18/17 14:09 83 150/74 (99) 06/18/17 14:06 85 168/83 (111) 06/18/17 14:01 85 152/80 (104) 06/18/17 13:56 83 147/72 (97) 06/18/17 13:51 83 140/70 (93) 06/18/17 13:46 83 139/76 (97) 06/18/17 13:41 84 137/75 (95) 06/18/17 13:35 85 136/72 (93) 06/18/17 13:35 17 06/18/17 13:32 81 139/75 (96) 06/18/17 13:02 78 172/94 (120) 06/18/17 13:00 18 06/18/17 11:45 18 06/18/17 11:40 78 157/95 (115) 06/18/17 10:46 79 165/101 (122) 06/18/17 10:31 83 144/90 (108) 06/18/17 10:21 82 148/86 (106) Lab & Micro Results Test 06/18/17 09:56 06/18/17 10:22 06/18/17 21:00 06/19/17 04:21 Urine Color YELLOW Urine Turbidity CLEAR Urine pH 5.5 Urine Specific [place] 1.009 Urine Protein TRACE mg/dL Urine Glucose (UA) NEG mg/dL Urine Ketones NEG mg/dL Urine Occult Blood NEG Urine Nitrite NEG Urine Bilirubin NEG Urine Urobilinogen LESS THAN 2.0 MG/DL Urine Leukocyte Esterase NEG Urine WBC LESS THAN 1 /hpf Urine Squamous Epithelial Cells 2 /hpf Urine Bacteria RARE /hpf Urine Mucus FEW /lpf Microscopic Urinalysis Comment CULT NOT INDICATED Urine Opiates Screen NEG Urine Barbiturates Screen NEG Urine Amphetamines Screen NEG Urine Benzodiazepines Screen NEG Urine Cocaine Screen NEG Urine Cannabinoids Screen NEG White Blood Count 10.8 TH/MM3 11.8 TH/MM3 12.1 TH/MM3 Red Blood Count 4.47 MIL/MM3 4.39 MIL/MM3 4.28 MIL/MM3 Hemoglobin 13.6 GM/DL 13.2 GM/DL 12.6 GM/DL Hematocrit 38.0 % 38.1 % 36.7 % Mean Corpuscular Volume 85.0 FL 86.7 FL 85.9 FL Mean Corpuscular Hemoglobin 30.3 PG 30.1 PG 29.5 PG Mean Corpuscular Hemoglobin Concent 35.7 % 34.7 % 34.4 % Red Cell Distribution Width 12.6 % 12.9 % 12.8 % Platelet Count 232 TH/MM3 235 TH/MM3 232 TH/MM3 Mean Platelet Volume 10.8 FL 11.3 FL 11.3 FL Blood Urea Nitrogen 10 MG/DL 12 MG/DL 12 MG/DL Creatinine 0.51 MG/DL 0.80 MG/DL 0.56 MG/DL Random Glucose 102 MG/DL 131 MG/DL 126 MG/DL Total Protein 7.5 GM/DL 7.2 GM/DL 7.0 GM/DL Albumin 2.6 GM/DL 2.5 GM/DL 2.4 GM/DL Calcium Level 8.9 MG/DL 9.5 MG/DL 8.9 MG/DL Alkaline Phosphatase 74 U/L 74 U/L 69 U/L Aspartate Amino Transf (AST/SGOT) 20 U/L 18 U/L 17 U/L Alanine Aminotransferase (ALT/SGPT) 30 U/L 32 U/L 29 U/L Total Bilirubin 0.3 MG/DL 0.3 MG/DL 0.2 MG/DL Sodium Level 137 MEQ/L 137 MEQ/L 140 MEQ/L Potassium Level 3.9 MEQ/L 4.0 MEQ/L 3.7 MEQ/L Chloride Level 106 MEQ/L 106 MEQ/L 107 MEQ/L Carbon Dioxide Level 21.6 MEQ/L 19.9 MEQ/L 21.3 MEQ/L Anion Gap 9 MEQ/L 11 MEQ/L 12 MEQ/L Estimat Glomerular Filtration Rate 149 ML/MIN 89 ML/MIN 134 ML/MIN Neutrophils (%) (Auto) 84.5 % 82.0 % Lymphocytes (%) (Auto) 12.9 % 15.1 % Monocytes (%) (Auto) 2.3 % 2.8 % Eosinophils (%) (Auto) 0.1 % 0.0 % Basophils (%) (Auto) 0.2 % 0.1 % Neutrophils # (Auto) 10.0 TH/MM3 9.9 TH/MM3 Lymphocytes # (Auto) 1.5 TH/MM3 1.8 TH/MM3 Monocytes # (Auto) 0.3 TH/MM3 0.3 TH/MM3 Eosinophils # (Auto) 0.0 TH/MM3 0.0 TH/MM3 Basophils # (Auto) 0.0 TH/MM3 0.0 TH/MM3 CBC Comment DIFF FINAL DIFF FINAL Differential Comment Uric Acid 6.6 MG/DL 7.0 MG/DL Physical Exam GENERAL: Well-nourished, well-developed patient. CARDIOVASCULAR: Regular rate and rhythm without murmurs, gallops, or rubs. RESPIRATORY: Breath sounds equal bilaterally. No accessory muscle use. ABDOMEN/GI: Abdomen soft, non-tender. Fundus: 32 FHT's: Category: 1 Baseline: 140s Reactive: Positive Variability: Moderate Decels: None EXTREMITIES: No cyanosis or edema, non-tender, without signs of DVT. Assessment and Plan Problem List: (1) 32 weeks gestation of ICD Codes: Z3A.32 - 32 weeks gestation of Status: Acute Assessment and Plan 21-year-old at 32/6 admitted for elevated blood pressures from OB diagnostics.Past elevated 24 hour urine protein 482 on 04/10/17. Without severe signs/symptoms of preeclampsia today. H/H 13.6/38.0, platelets 232, AST 20, ALT 30, UA with trace protein. 1. Pre-eclampsia evaluation -Admit for observation -Follow-up 24 hour urine protein collection today at 1000 -Second dose of betamethasone scheduled today for 1700 -FHT category 1, reassuring -Platelets 232 -LFTs WNL -Uric acid 8.9 -Plan to re-evaluate patient after steroids and urine protein collection today for future medical management 2. Type 2 DM -Continue home metformin -BG checks TID -Carb. consistent diet 3. Chronic HTN -Patient has required multiple doses of Labetalol during hospitalizations for BP elevations -Patient given 400mg PO 06/19/17 -Plan to titrate up dosing as indicated DW: Sean Justin MD R2 Jun 19, 2017 08:59
[2017-06-19] MEDS: LABETALOL HCL 100 MG TAB PO SCH (16:40)
[2017-06-19] MEDS: BETAMETHASONE SOD PHOS/ACETATE SUSP 30 MG/5 ML VIAL IM SCH (16:40)
[2017-06-19] MEDS ORDERED: LABETALOL HCL 300 MG TAB PO ONE (18:00)
[2017-06-20 01:55] VITALS: BP 130/69; PULSE 91
[2017-06-20 02:00] VITALS: RESP 18; TEMP 98.1
[2017-06-20 06:11] VITALS: BP 135/71; PULSE 84
--- NOTE | 2017-06-20 06:29 | PD.OB.ANTE ---
Subjective Diagnosis: (1) 32 weeks gestation of Diagnosis: Principal Interval History Patient seen and examined this morning by OB team. Patient's Labetalol increased to 400mg BID. BP ranged from 123/62-159/90, with the most recent BP at 130/69. Otherwise no acute events overnight. She endorses good movement and denies any vaginal bleeding, vaginal discharge, loss of fluid, right upper quadrant pain, neurologic symptoms, or dysuria. Patient has continued with 24-hour urine collection showed 695mg. Otherwise she has no complaints and denies any fevers, chills, shortness breath, chest pain, NVD, vomiting, or calf tenderness. Antepartum ROS: Reports: movement normal, Denies: New complaints, Loss of fluid, Vaginal bleeding, Contractions (Sean Swartz MD R2) Objective Vital Signs Vital Signs Date Time Temp Pulse Resp B/P (MAP) Pulse Ox O2 Delivery O2 Flow Rate FiO2 06/20/17 02:00 98.1 18 06/20/17 01:55 91 130/69 (89) 06/19/17 22:51 81 123/62 (82) 06/19/17 21:17 136/71 (92) 06/19/17 21:17 87 06/19/17 20:13 82 143/79 (100) 06/19/17 20:01 83 141/75 (97) 06/19/17 20:00 98.2 06/19/17 19:01 82 158/85 (109) 06/19/17 18:01 82 157/87 (110) 06/19/17 17:01 82 151/81 (104) 06/19/17 17:00 17 06/19/17 17:00 97.9 06/19/17 16:01 84 156/80 (105) 06/19/17 16:00 18 06/19/17 15:01 83 158/84 (108) 06/19/17 14:01 86 159/90 (113) 06/19/17 14:00 16 06/19/17 13:01 84 140/80 (100) 06/19/17 13:00 16 06/19/17 12:15 98.2 06/19/17 12:01 86 148/83 (104) 06/19/17 12:00 17 06/19/17 11:01 82 144/81 (102) 06/19/17 11:00 18 06/19/17 10:06 86 154/88 (110) 06/19/17 09:01 81 146/84 (104) 06/19/17 08:44 17 06/19/17 08:36 97.8 06/19/17 08:01 83 150/86 (107) Lab & Micro Results Test 06/19/17 10:00 Urine Total Volume 24 Hours 2850 ML Urine Total Protein 24 Hour 695 MG/24HR Physical Exam GENERAL: Well-nourished, well-developed patient. CARDIOVASCULAR: Regular rate and rhythm without murmurs, gallops, or rubs. RESPIRATORY: Breath sounds equal bilaterally. No accessory muscle use. ABDOMEN/GI: Abdomen soft, non-tender. Fundus: 32 weeks EXTREMITIES: No cyanosis or edema, non-tender, without signs of DVT. Reflexes WNL. (Sean Swartz MD R2) Assessment and Plan Problem List: (1) 32 weeks gestation of ICD Codes: Z3A.32 - 32 weeks gestation of Status: Acute Assessment and Plan 21-year-old at 32/6 admitted for elevated blood pressures from OB diagnostics.Past elevated 24 hour urine protein 482 on 04/10/17. Without severe signs/symptoms of preeclampsia today. H/H 13.6/38.0, platelets 232, AST 20, ALT 30, UA with trace protein. 1. Pre-eclampsia evaluation -Admitted for observation -24 hour urine protein collection: 695mg -Labs on 06/19 show normal platelets, LFTs -Betamethasone completed 06/18, 06/19 -NST this AM 2. Type 2 DM -Continue home metformin -BG checks TID -Carb. consistent diet 3. Chronic HTN -Labetalol increased to 400mg BID -BP ranged from 123/62-159/90, with the most recent BP at 130/69 Patient to be discharged home with Labetalol 400mg BID pending reactive NST. Patient to follow up with [facility] within the week. Patient given instructions on when to return to the ED including but not limited to elevated home BP, vision changes, recurrent headache, neurologic symptoms, loss of fluid, or contractions. DW: Dr. Enamorado (Sean Swartz MD R2) Assessment and Plan Patient seen and evaluated with resident under direct supervision, agree with assessment and plan. (Jarod Enamorado MD) Sean Swartz MD R2 Jun 20, 2017 06:29 Jarod Enamorado MD Jun 22, 2017 07:32
[2017-06-20 07:44] VITALS: BP 157/88; PULSE 78; TEMP 97.8
[2017-06-20] MEDS ORDERED: LABETALOL HCL 300 MG TAB PO SCH (08:00)
[2017-06-20] MEDS ORDERED: LABETALOL HCL 100 MG TAB PO SCH (08:00)
[2017-06-20] MEDS: MULTIVIT/MIN/PREN/FOL AC/IRON PRENATAL TAB PO SCH (08:28)
[2017-06-20] MEDS: metFORMIN HCL 500 MG TAB PO SCH (08:28)
[2017-06-20 12:13] VITALS: RESP 18
[2017-06-20 12:14] VITALS: BP 138/78; PULSE 81
[2017-06-20] MEDS ORDERED: LABE200T2 PO (12:49)
--- NOTE | 2017-06-20 12:57 | PD.OB.ANTE ---
Subjective Diagnosis: (1) 32 weeks gestation of Diagnosis: Principal (2) High blood pressure (3) Chronic hypertension (4) DM2 (diabetes mellitus, type 2) Interval History pt. in bed w/o c/o. have bp taken and 130's/80's. denies jordan/visual distrubances, no n/v, no cp/sb. Objective Vital Signs Vital Signs Date Time Temp Pulse Resp B/P (MAP) Pulse Ox O2 Delivery O2 Flow Rate FiO2 06/20/17 12:13 18 06/20/17 07:44 78 157/88 (111) 06/20/17 07:44 97.8 06/20/17 06:11 84 135/71 (92) 06/20/17 02:00 98.1 18 06/20/17 01:55 91 130/69 (89) 06/19/17 22:51 81 123/62 (82) 06/19/17 21:17 136/71 (92) 06/19/17 21:17 87 06/19/17 20:13 82 143/79 (100) 06/19/17 20:01 83 141/75 (97) 06/19/17 20:00 98.2 06/19/17 19:01 82 158/85 (109) 06/19/17 18:01 82 157/87 (110) 06/19/17 17:01 82 151/81 (104) 06/19/17 17:00 17 06/19/17 17:00 97.9 06/19/17 16:01 84 156/80 (105) 06/19/17 16:00 18 06/19/17 15:01 83 158/84 (108) 06/19/17 14:01 86 159/90 (113) 06/19/17 14:00 16 06/19/17 13:01 84 140/80 (100) 06/19/17 13:00 16 Physical Exam GENERAL: Well-nourished, well-developed patient. CARDIOVASCULAR: Regular rate and rhythm without murmurs, gallops, or rubs. RESPIRATORY: Breath sounds equal bilaterally. No accessory muscle use. ABDOMEN/GI: Abdomen soft, non-tender, gravid GENITOURINARY: FHT's: Category: 1 Reactive:+ Variability: mod Decels: none EXTREMITIES: No cyanosis or edema, non-tender, without signs of DVT. Assessment and Plan Problem List: (1) 32 weeks gestation of ICD Codes: Z3A.32 - 32 weeks gestation of Status: Acute (2) High blood pressure ICD Codes: I10 - Essential (primary) hypertension (3) DM2 (diabetes mellitus, type 2) ICD Codes: E11.9 - Type 2 diabetes mellitus without complications (4) Chronic hypertension ICD Codes: I10 - Essential (primary) hypertension Status: Chronic Assessment and Plan 21-year-old at 32/6 admitted for elevated blood pressures from OB diagnostics. pt. w/ chronic htn controlled w/ 400mg labetalol bid. pt. to continue. pt. to also continue metformin 100mg for type 2 dm. pt. to be d/c to home. given precautions for return. all ? answered. f/u w/ ob diagnostics as sched and ob. Bill Donald Jr., MD Jun 20, 2017 12:57
== END 2017-06-20 13:11 | disposition home or self-care (01) ==
LOC: HOBED 09:28 → H2EA 11:16
PROVIDERS: ADMIT Obstetrics & Gynecology; ATTEND Obstetrics & Gynecology
DX: O26.893 Other specified pregnancy related conditions, third trimester (principal); R03.0 Elevated blood-pressure reading, without diagnosis of hypertension; R10.11 Right upper quadrant pain; R51 Headache; O24.913 Unspecified diabetes mellitus in pregnancy, third trimester; Z3A.32 32 weeks gestation of pregnancy; Z79.84 Long term (current) use of oral hypoglycemic drugs
CPT/HCPCS: 80053; 80307; 81001; 82948; 84157; 84550; 85025; 85027; 96361; 96374; 96376; 99285; G0378; G0481; J0702; J7120

== ENCOUNTER 2017-07-21 11:49 | Inpatient (IN) | payer OTHER ==
[2017-07-21] VITALS (90 sets, daily range): BP systolic 113–193; BP diastolic 55–115; PULSE 18–98; RESP 18–20; TEMP 97.6–97.8; O2SAT 97–99
[~2017-07-21] VITALS: Ht 162.6 cm; Wt 107.0 kg
[2017-07-21] MEDS: LACTATED RINGER'S 1000 ML INJ 1,000 ML IV SCH ×2 (08:00→12:18)
[~2017-07-21 11:49] MED LIST changes: +LABE200T2 PO; +PREN29TA PO
[2017-07-21] MEDS ORDERED: ePHEDrine/NS 25 MG/5 ML SYRINGE IV ONE (12:00)
[2017-07-21] MEDS ORDERED: ceFAZolin INJ 1,000 MG VIAL IV ONE (12:00)
[2017-07-21] MEDS ORDERED: PHENYLEPH/NS 1000 MCG/10 ML SYR IV ONE (12:00)
[2017-07-21] MEDS ORDERED: DEXAMETHASONE SOD PHOS 4 MG/ML VIAL IV ONE (12:00)
[2017-07-21] MEDS ORDERED: OXYTOCIN 10 UNIT/ML AMP IV ONE (12:00)
[2017-07-21] MEDS ORDERED: ONDANSETRON HCL 4 MG/2 ML VIAL IV ONE (12:00)
[2017-07-21] MEDS ORDERED: LACTATED RINGER'S 1000 ML INJ 1,000 ML IV PRN (12:18)
[2017-07-21] MEDS ORDERED: MAGNESIUM SULFATE 40 GM PREMIX 1,000 ML ONE (12:18)
[2017-07-21] MEDS ORDERED: MAGNESIUM SULFATE 4 GM PREMIX 100 ML ONE (12:18)
[2017-07-21] MEDS ORDERED: LABETALOL HCL 100 MG/20 ML VIAL ONE (12:19)
[2017-07-21] MEDS ORDERED: LABETALOL HCL 100 MG/20 ML VIAL IV PUSH PRN ×4 (12:30→14:45)
[2017-07-21] MEDS ORDERED: CALCIUM GLUCONATE 10% 1 GM/10 ML VIAL IV PUSH PRN (12:30)
[2017-07-21] MEDS ORDERED: CITRIC ACID-SODIUM CITRATE LIQ 30 ML UDC PO SCH (12:30)
[2017-07-21] MEDS ORDERED: ACETAMINOPHEN 325 MG TAB PO PRN (12:30)
[2017-07-21] MEDS ORDERED: SODIUM CHLORID 0.9% 500 ML INJ 500 ML IV PRN (12:30)
[2017-07-21] MEDS ORDERED: LIDOCAINE HCL 1% 20 ML VIAL I-DERMAL PRN (12:30)
[2017-07-21] MEDS ORDERED: SODIUM CHLORIDE 0.9% FLUSH 10 ML FLUSH IV FLUSH PRN ×2 (12:30→16:00)
[2017-07-21] MEDS ORDERED: ONDANSETRON HCL 4 MG/2 ML VIAL IV PUSH PRN ×2 (12:30→16:00)
[2017-07-21] MEDS ORDERED: MAGNESIUM SULFATE 4 GM PREMIX 100 ML IV ONE (12:30)
[2017-07-21] MEDS ORDERED: SODIUM CHLOR 0.9% 1000 ML INJ 1,000 ML IV PRN (12:38)
[2017-07-21 12:53] LABS: HEMATOCRIT 37.3 % (35.0-46.0); HEMOGLOBIN 13.2 GM/DL (11.6-15.3); MEAN CELL VOLUME 85.4 FL (80.0-100.0); MEAN CORPUSCULAR HEMOGLOBIN 30.1 PG (27.0-34.0); MEAN CORPUSCULAR HGB CONC 35.2 % (32.0-36.0); PLATELET COUNT 239 TH/MM3 (150-450); RED BLOOD COUNT 4.37 MIL/MM3 (4.00-5.30); RED CELL DISTRIBUTION WIDTH 13.5 % (11.6-17.2); WHITE BLOOD COUNT 11.8 TH/MM3 (4.0-11.0)
[2017-07-21 12:55] LABS: BACTERIA, URINE RARE /hpf; BILIRUBIN, URINE NEG (NEG); BLOOD, URINE NEG (NEG); GLUCOSE,URINE NEG (NEG); KETONE, URINE NEG (NEG); MUCUS URINE FEW /lpf (OCC); NITRITE,URINE NEG (NEG); PH, URINE 5.5 (5.0-8.5); SQUAMOUS EPITHELIAL CELL URINE <1 /hpf (0-5); TRANSITIONAL EPI CELLS, URINE <1 /hpf; URINE COLOR LIGHT-YELLOW (YELLW/STRAW); URINE LEUKOCYTE ESTERASE NEG (NEG)
--- NOTE | 2017-07-21 13:00 | PD ---
HPI Chief Complaint headache, blurry vision Date Seen: Jul 21, 2017 Time Seen: 12:00 (Ole Samuels MD R1) Travel History International Travel<30 Days: No Contact w/Intl Traveler<30Days: No Known Affected Area: No (Ole Samuels MD R1) History of Present Illness HPI Ms Ken is a 21YO at 37/3 weeks w/PMHx of Chronic HTN and DM type 2 diagnosed about a year ago who presents with elevated BP to 190/111, headache, blurry vision with seeing spots, intermittent SOB and CP over the past day, and pain in bilateral LEs. Pt has been treated during with Labetalol 400mg BID for HTN and her DM was diet controlled until when she began Metformin 500mg BID. Pt is not taking aspirin. Reports some vomiting last week but none this week. There has been some intermittent leakage of fluid, but no vaginal bleeding. Pt had OB US 06/18/17 wnl including BPP 10/10; however, SHILPI low at 8.3 and placentomegaly noted with request for TORCH Titers. Could not find evidence of such titers available in the record. Protein 695 on 06/19/17. Pt denies dizziness, N/V/D, dysuria today. Weeks Gestation: 37 Para: 0 : 1 Miscarriage: 0 : 0 (Ole Samuels MD R1) History Past Medical History Narrative Medical Chronic HTN Diabetes mellitus type 2 (Ole Samuels MD R1) Obstetric History Obstetric History (Ole Samuels MD R1) Past Surgical History Surgical History: No Previous Surgery (Ole Samuels MD R1) Family History Narrative Family History Father and Mother both with HTN and DM (Ole Samuels MD R1) Social History Alcohol Use: No Tobacco Use: No Substance Abuse: No (Ole Samuels MD R1) Allergies-Medications (Allergen,Severity, Reaction): Coded Allergies: No Known Allergies (Unverified Allergy, Unknown, 06/18/17) Home Meds Active Scripts Labetalol (Labetalol) 200 Mg Tab, 400 MG PO BID for Blood Pressure Management for 30 Days, #120 TAB 3 Refills Prov:Bill Donald Jr., MD 06/20/17 Labetalol (Labetalol) 100 Mg Tab, 100 MG PO DIRECTED for Blood Pressure Management, #90 TAB 1 Refill Take 200mg (two tabs) in the morning, and take 100mg (one tab) at night. Prov:Colton Mcdonough MD 05/12/17 Metformin (Metformin) 500 Mg Tab, 500 MG PO BIDPC for Blood Sugar Management, # 60 TAB 0 Refills Prov:Colton Mcdonough MD 04/28/17 Reported Medications Vit-Iron Carbonyl ( Plus Iron 29-1 mg) 29 Mg Iron-1 Mg Tab, 1 TAB PO DAILY for Nutritional Supplement, #30 TAB 0 Refills 06/18/17 Review of Systems General / Constitutional: Fever, Chills Eyes: Blurred Vision, Visual changes (spots) HENT: Headaches (past day or two), No: Lightheadedness Cardiovascular: Chest Pain or Discomfort (intermittent CP), No: Palpitations, Syncope Respiratory: Short of Breath, No: Cough Gastrointestinal: Vomiting (last week), No: Nausea, Diarrhea, Abdominal Pain, Constipation Genitourinary: Discharge (some leakage of fluid), No: Dysuria, Vaginal Bleeding Musculoskeletal: Pain (in LEs), No: Edema Skin: No Rash Neurologic: Headache, No: Dizziness, Seizures (Ole Samuels MD R1) Physical Exam T- 97.9 / BP 190/111 / HR 93 / RR 18 Narrative GENERAL: Well-nourished, well-developed patient. SKIN: Warm and dry. HEAD: Normocephalic and atraumatic. EYES: No scleral icterus. No injection or drainage. ENT: No nasal drainage noted. Mucous membranes pink. Airway patent. NECK: Supple, trachea midline. No JVD. CARDIOVASCULAR: Regular rate and rhythm without murmurs, gallops, or rubs. RESPIRATORY: Breath sounds equal bilaterally. No accessory muscle use. BREASTS: Bilateral exam showed no masses , no retractions, no nipple discharge. ABDOMEN/GI: Abdomen soft, non-tender, bowel sounds present, no rebound, no guarding Gravid to 37 weeks size GENITOURINARY: External Genitalia: intact and normal in appearance Cervix: closed, thick, high Dilatation: 0 Effacement: 0 Station: - Presentation: - Membranes: intact Uterine Contractions: absent FHT's: Category: 1 Baseline: 140 Reactive: yes Variability: moderate Decels: absent EXTREMITIES: No cyanosis or edema. BACK: Nontender without obvious deformity. No CVA tenderness. NEUROLOGICAL: Awake and alert. Motor and sensory grossly within normal limits. No hyperreflexia. Five out of 5 muscle strength in all muscle groups. Normal speech. (Ole Samuels MD R1) Data Data Vital Signs Reviewed: Yes Orders Orders Magnesium Sulfate 40 Gm Premix (Magnesiu (07/21/17 12:18) Magnesium Sulfate 4 Gm Premix (Magnesium (07/21/17 12:18) Labetalol Inj (Trandate Inj) (07/21/17 12:19) Admit To Inpatient (07/21/17 ) Code Status (07/21/17:18) Vital Signs (Adult) Q5MX4,Q15MX4,Q30MX2,Q1H (07/21/17:18) Resp Pulse Oximetry (07/21/17 ) Activity Bed Rest (07/21/17 12:18) Intake + Output Q1H (07/21/17 12:18) Notify Parameters (07/21/17 12:18) Heart CONTINUOUS (07/21/17 12:18) Urinary Catheter Management LIZETTE.Q8H (07/21/17 12:18) ^ Check Deep Tendon Reflexes Q1H (07/21/17 12:18) Diet Npo (07/21/17 Lunch) Lactated Ringer's 1000 Ml Inj (Lr 1000 M (07/21/17 12:18) Sodium Chloride 0.9% Flush (Ns Flush) (07/21/17 12:30) Sodium Chloride 0.9% Flush (Ns Flush) (07/21/17 21:00) Magnesium Sulfate 40 Gm Premix (Magnesiu (07/21/17 12:18) Labetalol Inj (Trandate Inj) (07/21/17 12:30) Calcium Gluconate Inj (Calcium Gluconate (07/21/17 12:30) Acetaminophen (Tylenol) (07/21/17 12:30) Ondansetron Inj (Zofran Inj) (07/21/17 12:30) Cbc No Diff, Includes Plts (07/21/17 12:18) Comprehensive Metabolic Panel (07/21/17 12:18) Uric Acid (07/21/17 12:18) Urinalysis - C+S If Indicated (07/21/17 12:18) Magnesium Sulfate 4 Gm Premix (Magnesium (07/21/17 12:30) Lactated Ringer's 1000 Ml Inj (Lr 1000 M (07/21/17 12:18) Sodium Chlorid 0.9% 500 Ml Inj (Ns 500 M (07/21/17 12:30) Sodium Chlor 0.9% 1000 Ml Inj (Ns 1000 M (07/21/17 12:38) Lidocaine 1% Inj (50 Ml) (Xylocaine 1% I (07/21/17 12:30) Citric Acid-Sodium Citrate Liq (Bicitra (07/21/17 12:30) Fentanyl Inj (Fentanyl Inj) (07/21/17 12:30) Fentanyl Inj (Fentanyl Inj) (07/21/17 12:30) Hold Clot (07/21/17 12:18) Abo/Rh Blood Type (07/21/17 12:18) Ob/Psych Drug Screen, Urine (07/21/17:18) ^ Epidural / Intrathecal Infus (07/21/17 12:18) Inpatient Certification (07/21/17 ) Protein Creat Ratio, Random Ur (07/21/17 12:18) Group B Beta Strep Scrn (Gbs) (07/21/17 12:26) (Ole Samuels MD R1) MDM Medical Record Reviewed: Yes Narrative Course / MDM 21YO at 37/3 weeks with PMHx HTN and DM type 2 presents with chronic HTN with severe features. Admitting for BP elevated to 190/111 on admission, with neurologic sxs of WEAVER, blurry vision. Cervical exam closed, thick and long. FHT reassuring with BL 148, 1. IUP -Monitor and toco -Hold NPO for now -ABO -GBS pending -Bed rest -LR IVF per protocol -Tylenol PRN 2. Chronic HTN with severe features -Labetalol 20mg IV push once, continue dosing per protocol as indicated -Mag sulfate 4gm loading dose IV -Mag sulfate 2gm/hr -Calcium gluconate PRN -Labs: cbc, cmp, UDS, uric acid, UA, Protein/Cr ratio -Zofran 4mg IV q6h nausea 3. DM type II -Holding home dose -SSI -Accuchecks qid while awake Pt seen and dw Hernando Anne and Debbie King (Ole Samuels MD R1) Collaborating MD Comments 21 yo at 37 weeks gestation presents with significant elevation in blood pressure 190/112, headache, visual changes, and upper abdominal pain. She has known chronic hypertension on labetalol 400mg bid and pregestational diabetes presently on metformin. Normal labs except elevation in prot/creat ration, and proteinuria. Blood pressure has been difficult to manage. She was started on magnesium sulfate on admission with an additional dose of 20, then 40, then 80 mg of IV labetalol to reach an acceptable bp range. Cervix is closed, long, high, posterior and not amenable to induction of labor. Plan primary due to chtn with severe superimposed preeclampsia with blood pressures that have been difficult to control, remote from delivery. (Nayeli Anne MD) Ole Samuels MD R1 Jul 21, 2017 13:00 Nayeli Anne MD Jul 21, 2017 14:47
[2017-07-21] MEDS: MAGNESIUM SULFATE 40 GM PREMIX 1,000 ML IV SCH (13:13)
[2017-07-21 13:20] LABS: ALBUMIN 2.4 GM/DL (3.4-5.0); AST (GOT) 18 U/L (15-37); BICARBONATE 20.7 MEQ/L (21.0-32.0); BLOOD UREA NITROGEN 13 MG/DL (7-18); CALCIUM 8.9 MG/DL (8.5-10.1); CHLORIDE 110 MEQ/L (98-107); GLOMERULAR FILTRATION RATE 124 ML/MIN (>89); GLUCOSE,RANDOM 134 MG/DL (74-106); SODIUM (NA) 139 MEQ/L (136-145)
[2017-07-21 13:21] LABS: ALT (GPT) 23 U/L (10-53)
[2017-07-21 13:23] LABS: ALKALINE PHOSPHATASE 97 U/L (45-117); TOTAL BILIRUBIN ADULT 0.2 MG/DL (0.2-1.0); TOTAL PROTEIN 7.3 GM/DL (6.4-8.2)
[2017-07-21] MEDS ORDERED: MORPHINE SULFATE PF 5 MG/10 ML VIAL ONE (14:57)
[2017-07-21] MEDS ORDERED: OXYTOCIN 30 UNITS-500ML PREMIX 500 ML IV ONE (16:00)
[2017-07-21] MEDS ORDERED: SIMETHICONE 80 MG CHEWABLE TAB PO PRN (16:00)
[2017-07-21] MEDS ORDERED: oxyCODONE/ACETAMINOPHEN 5 MG/325 MG TAB PO PRN (16:00)
--- NOTE | 2017-07-21 16:05 | PD.OB.DELI ---
Procedure Note Section Procedure Pre Op Diagnosis: (1) DM2 (diabetes mellitus, type 2) (2) Chronic hypertension (3) 37 weeks gestation of (4) Severe preeclampsia Post Op Diagnosis: Performed by Nayeli Anne Procedure: Primary Low Transverse Sec Indication for delivery: Maternal medical problems Informed consent obtained: For anesthesia, For procedure Confirmed correct: Time-out taken Anesthesia: Spinal Medication prior to procedure: Antacids, Antibiotics, IV, Magnesium Sulfate Urinary catheter: Inserted using sterile technique, To dependent drainage Sterile preparation: Duraprep Position: Supine with wedge to left side Operative Features Skin Incision: Pfannenstiel Uterine Incision: Low transverse w/knife / blunt ext Membranes Ruptured: Artificially, Appearance of fluid (clear, minimal amount) Presentation: Occiput anterior Delivery date: Jul 21, 2017 Delivery time: 15:29 Delivery of infant: Uneventful Infant: Male One Minute : 8 Five Minute : 9 Weight: 2310 Status of infant: Viable Placenta delivered: Intact, Sent to pathology Medications: Antibiotics Estimated blood loss: 600cc Procedure tolerated: Well Maternal Condition: Stable Condition: Stable Nayeli Anne MD Jul 21, 2017 16:05
--- NOTE | 2017-07-21 16:39 | MP ---
cc: Nayeli Anne MD DATE OF OPERATION: 07/21/2017 DATE OF PROCEDURE: 07/21/2017 SURGEON: Nayeli Anne MD PREOPERATIVE DIAGNOSES: 1. 37 weeks gestation. 2. Severe preeclampsia superimposed upon chronic hypertension. 3. Noncompliant with care. 4. Pregestational type 2 diabetes. POSTOPERATIVE DIAGNOSES: 1. 37 weeks gestation. 2. Severe preeclampsia superimposed upon chronic hypertension. 3. Noncompliant with care. 4. Pregestational type 2 diabetes. PROCEDURE PERFORMED: Primary low transverse section without extension. ESTIMATED BLOOD LOSS: 600 mL. ANESTHESIA: Spinal. COMPLICATIONS: None. DRAINS: Shin to gravity. COUNTS: Correct x3. FINDINGS: 1. Normal uterus, tubes and ovaries. 2. Clear minimal amniotic fluid. 3. Infant male, vertex presentation. Apgars were 8 and 9. Baby weighed 2310 grams, which is 5 pounds, 2 ounces. PATHOLOGY: Placenta. DESCRIPTION OF PROCEDURE: The patient was taken back to the operating room, prepped and draped in the usual sterile fashion, placed in dorsal supine position with a wedge to her left side. After adequate anesthetic was administered, a Pfannenstiel incision was made in the skin and taken down to the fascia. The fascia was nicked in the midline and extended bilaterally and taken off the rectus muscles. The muscles were divided in the midline. Anterior peritoneum was entered. Vesicouterine peritoneum was taken down. A transverse hysterotomy incision was made bluntly and extended bilaterally. The infant was delivered to the operative field. The rest of the body was delivered and handed off to the resuscitation team for subsequent care. Nuchal cord x1 was reduced prior to delivery. A 45-second cord clamping delayed before delivery of the placenta, which was intact. Endometrium was curetted with a moist laparotomy sponge and the hysterotomy incision was repaired using a running locking #1 chromic suture with good hemostasis at closure. Gutters were rendered free of all blood and clot material. The abdominal musculature was plicated together in midline with a #1 chromic suture and then a #1 PDS was used to close the fascia. Subcuticular suture was placed with a 3-0 Monocryl. The patient tolerated the procedure well and was taken back to the recovery room in good condition. MD JORGE Carson/KAYCE , 04:08 PM , 04:38 PM
[2017-07-21] MEDS: INSULIN ASPART SUPPLEMENTAL SCALE SQ SCH ×2 (17:00→21:00)
[2017-07-21] MEDS ORDERED: CEFAZOLIN INJ 2,000 MG in SODIUM CHLORIDE 0.9% INJ 100 ML IV SCH (17:00)
[2017-07-21] MEDS ORDERED: EPIDURAL-DIPHENHYDRAMINE HCL 50 MG CAP PO PRN (18:30)
[2017-07-21] MEDS ORDERED: EPIDURAL-DO NOT ADMINISTER ANTICOAGULANTS PRN (18:30)
[2017-07-21] MEDS ORDERED: EPIDURAL-NALOXONE HCL 0.4 MG/ML AMP IV PUSH PRN (18:30)
[2017-07-21] MEDS ORDERED: EPIDURAL-NO SYSTEMIC NARCOTICS PRN (18:30)
[2017-07-21] MEDS ORDERED: EPIDURAL-DIPHENHYDRAMINE HCL 50 MG/ML VIAL IV PUSH PRN (18:30)
[2017-07-21] MEDS ORDERED: SODIUM CHLORIDE 0.9% FLUSH 10 ML FLUSH IV FLUSH SCH (21:00)
[2017-07-21] MEDS ORDERED: OXYTOCIN 30 UNITS-500ML PREMIX 500 ML IV PRN (21:00)
[2017-07-21] MEDS: SODIUM CHLORIDE 0.9% FLUSH 10 ML FLUSH IV FLUSH SCH (21:00)
[2017-07-21] MEDS: CEFAZOLIN INJ 2,000 MG in SODIUM CHLORIDE 0.9% INJ 100 ML IV SCH (23:17)
[2017-07-22] VITALS (70 sets, daily range): BP systolic 111–160; BP diastolic 70–93; PULSE 83–95; RESP 16–18; TEMP 97.2–99; O2SAT 96–99
[2017-07-22] MEDS: LACTATED RINGER'S 1000 ML INJ 1,000 ML IV SCH ×3 (04:50→14:58)
[2017-07-22 05:54] LABS: AUTOMATED NEUTROPHIL # 13.8 TH/MM3 (1.8-7.7); BASOPHIL % 0.2 % (0.0-2.0); HEMATOCRIT 35.6 % (35.0-46.0); LYMPH % 15.9 % (9.0-44.0); LYMPHOCYTE # 2.9 TH/MM3 (1.0-4.8); MEAN CELL VOLUME 87.2 FL (80.0-100.0); MEAN CORPUSCULAR HEMOGLOBIN 29.3 PG (27.0-34.0); MEAN CORPUSCULAR HGB CONC 33.7 % (32.0-36.0); MEAN PLATELET VOLUME 11.7 FL (7.0-11.0); MONOCYTE # 1.2 TH/MM3 (0-0.9); NEUT % 76.9 % (16.0-70.0); PLATELET COUNT 228 TH/MM3 (150-450); RED BLOOD COUNT 4.08 MIL/MM3 (4.00-5.30); RED CELL DISTRIBUTION WIDTH 13.6 % (11.6-17.2)
[2017-07-22 06:30] LABS: ALKALINE PHOSPHATASE 80 U/L (45-117); ALT (GPT) 20 U/L (10-53); AST (GOT) 20 U/L (15-37); BICARBONATE 21.5 MEQ/L (21.0-32.0); BLOOD UREA NITROGEN 11 MG/DL (7-18); CALCIUM 7.6 MG/DL (8.5-10.1); CHLORIDE 103 MEQ/L (98-107); CREATININE 0.63 MG/DL (0.50-1.00); GLOMERULAR FILTRATION RATE 117 ML/MIN (>89); GLUCOSE,RANDOM 116 MG/DL (74-106); MAGNESIUM 5.1 MG/DL (1.5-2.5); SODIUM (NA) 135 MEQ/L (136-145); TOTAL BILIRUBIN ADULT 0.2 MG/DL (0.2-1.0); TOTAL PROTEIN 6.2 GM/DL (6.4-8.2)
[2017-07-22] MEDS: CEFAZOLIN INJ 2,000 MG in SODIUM CHLORIDE 0.9% INJ 100 ML IV SCH (07:08)
[2017-07-22] MEDS: INSULIN ASPART SUPPLEMENTAL SCALE SQ SCH ×4 (08:00→21:00)
[2017-07-22] MEDS: MAGNESIUM SULFATE 40 GM PREMIX 1,000 ML IV SCH (08:13)
[2017-07-22] MEDS: SODIUM CHLORIDE 0.9% FLUSH 10 ML FLUSH IV FLUSH SCH ×2 (09:00→21:00)
[2017-07-22] MEDS: MULTIVIT/MIN/PREN/FOL AC/IRON PRENATAL TAB PO SCH (09:21)
--- NOTE | 2017-07-22 09:52 | HHI.OB ---
Subjective Post Operative Day: 1 Remarks Ms Ken had some nausea and vomiting last night that has resolved this morning. She is POD#1 from her C/S. Pain is controlled, is tolerating PO, voiding and some flatus but no BM yet. She is on bed rest until the Mag sulfate is completed this afternoon. BP has been controlled overnight and there are no headaches or visual changes or disturbances this morning. She tried last night to breastfeed but felt that the baby did not latch on as expected. Baby was taken to the nursery last night due to the mother's nausea and vomiting, but she requested her baby be brought up to the room this morning. Denies CP, SOB, N /V/D, dizziness, or pain from surgical site. Objective Vitals/I&O Vital Signs Date Time Temp Pulse Resp B/P (MAP) Pulse Ox O2 Delivery O2 Flow Rate FiO2 07/22/17 08:50 87 99 07/22/17 08:45 88 99 07/22/17 08:40 87 99 07/22/17 08:35 88 98 07/22/17 08:30 89 99 07/22/17 08:25 85 98 07/22/17 08:20 84 98 07/22/17 08:15 84 99 07/22/17 08:10 85 97 07/22/17 08:00 18 07/22/17 08:00 85 132/76 (94) 07/22/17 07:17 98.2 07/22/17 07:00 18 07/22/17 07:00 85 137/78 (97) 07/22/17 06:00 84 18 134/82 (99) 07/22/17 05:01 85 133/82 (99) 07/22/17 04:49 18 07/22/17 04:00 87 18 120/72 (88) 07/22/17 04:00 98.0 07/22/17 03:00 87 18 128/82 (97) 07/22/17 02:00 86 142/93 (109) 07/22/17 01:49 18 07/22/17 01:49 18 07/22/17 01:01 84 142/86 (104) 07/22/17 01:00 18 07/22/17 01:00 18 07/22/17 00:20 83 97 07/22/17 00:15 85 98 07/22/17 00:10 85 97 07/22/17 00:05 87 98 07/22/17 00:00 18 07/22/17 00:00 97.2 07/22/17 00:00 87 111/75 (87) 97 07/22/17 00:00 87 07/21/17 23:55 88 97 07/21/17 23:50 87 98 07/21/17 23:45 88 98 07/21/17 23:40 86 97 07/21/17 23:35 86 98 07/21/17 23:30 85 97 07/21/17 23:25 84 97 07/21/17 23:20 87 98 07/21/17 23:15 87 97 07/21/17 23:10 88 98 07/21/17 23:05 88 97 07/21/17 23:01 86 113/71 (85) 07/21/17 23:00 86 97 07/21/17 23:00 18 07/21/17 22:55 98 07/21/17 22:55 87 07/21/17 22:50 98 07/21/17 22:50 86 07/21/17 22:45 85 07/21/17 22:45 97 07/21/17 22:40 91 07/21/17 22:40 98 07/21/17 22:35 87 07/21/17 22:35 97 07/21/17 22:30 86 97 07/21/17 22:25 83 97 07/21/17 22:20 80 97 07/21/17 22:15 85 97 07/21/17 22:10 87 97 07/21/17 22:05 84 98 07/21/17 22:01 84 137/67 (90) 07/21/17 22:00 98 07/21/17 21:59 18 07/21/17 21:01 81 127/75 (92) 07/21/17 21:00 18 07/21/17 20:01 79 132/82 (99) 07/21/17 20:00 97.7 18 07/21/17 19:01 77 143/85 (104) 07/21/17 18:49 18 07/21/17 18:48 76 141/83 (102) 07/21/17 17:26 79 133/93 (106) 07/21/17 17:07 148/76 (100) 07/21/17 17:00 20 98 07/21/17 17:00 97.6 07/21/17 17:00 76 07/21/17 17:00 156/89 (111) 07/21/17 16:45 143/72 (95) 07/21/17 16:45 74 18 98 07/21/17 16:28 18 18 121/65 (83) 98 07/21/17 16:28 75 07/21/17 16:12 70 18 07/21/17 16:12 98 07/21/17 16:11 124/61 (82) 07/21/17 16:00 74 20 115/55 (75) 98 07/21/17 15:58 97.8 07/21/17 14:51 90 179/105 (129) 07/21/17 14:50 93 07/21/17 14:45 88 07/21/17 14:41 87 160/99 (119) 07/21/17 14:40 86 07/21/17 14:40 87 07/21/17 14:35 85 07/21/17 14:35 85 07/21/17 14:31 79 146/92 (110) 07/21/17 14:30 80 07/21/17 14:30 80 07/21/17 14:25 78 07/21/17 14:25 99 07/21/17 14:25 78 07/21/17 14:21 81 147/86 (106) 07/21/17 14:20 81 07/21/17 14:20 82 07/21/17 14:20 99 07/21/17 14:15 99 07/21/17 14:15 81 07/21/17 14:15 80 07/21/17 14:11 81 143/88 (106) 07/21/17 14:10 80 07/21/17 14:10 80 07/21/17 14:05 82 07/21/17 14:05 83 07/21/17 14:01 84 156/94 (114) 07/21/17 14:00 84 07/21/17 14:00 84 07/21/17 13:59 84 150/87 (108) 07/21/17 13:55 82 07/21/17 13:55 81 07/21/17 13:50 84 07/21/17 13:50 85 07/21/17 13:45 79 07/21/17 13:40 80 07/21/17 13:40 79 07/21/17 13:35 82 07/21/17 13:35 83 07/21/17 13:31 87 165/100 (121) 07/21/17 13:30 85 07/21/17 13:30 85 07/21/17 13:21 85 165/97 (119) 07/21/17 13:20 85 07/21/17 13:20 84 07/21/17 13:15 85 07/21/17 13:15 85 07/21/17 13:11 170/98 (122) 07/21/17 13:11 82 07/21/17 13:10 85 07/21/17 13:10 85 07/21/17 13:05 84 07/21/17 13:05 84 07/21/17 13:01 179/100 (126) 07/21/17 13:01 85 07/21/17 13:00 86 07/21/17 12:51 86 183/95 (124) 07/21/17 12:50 86 07/21/17 12:50 86 07/21/17 12:46 88 179/99 (125) 07/21/17 12:45 88 07/21/17 12:45 89 07/21/17 12:41 87 177/99 (125) 07/21/17 12:40 84 07/21/17 12:40 84 07/21/17 12:37 88 175/95 (121) 07/21/17 12:35 88 07/21/17 12:35 88 07/21/17 12:30 85 07/21/17 12:25 98 07/21/17 12:20 89 07/21/17 12:15 96 07/21/17 12:12 98 193/115 (141) 07/21/17 12:10 93 Intake & Output 07/22/17 07/22/17 07:00 19:00 Output Total 125 ml Balance -125 ml Output Urine Total 125 ml Result Diagram: 07/22/17 0500 07/22/17 0500 Objective Remarks GENERAL: Well-nourished, well-developed patient. CARDIOVASCULAR: Regular rate and rhythm without murmurs, gallops, or rubs. RESPIRATORY: Breath sounds equal bilaterally. No accessory muscle use. ABDOMEN/GI: Abdomen soft, non-tender, bowel sounds present. Incision: Dry and intact with a spot of old blood on the left edge of the dressing; there is mild tenderness but no erythema, induration or fluctuance. Fundus: Firm, non-tender at umbilicus. GENITOURINARY: Light to moderate bleeding. EXTREMITIES: No cyanosis or edema, non-tender, without signs of DVT. Medications and IVs Current Medications Medications (Trade) Dose Ordered Sig/Beverley Route Start Time Stop Time Status Last Admin Lactated Ringer's 1,000 ml @ 75 mls/hr [id number] IV 07/21/17 12:18 07/22/17 04:50 Magnesium Sulfate 1,000 ml @ 50 mls/hr Q20H IV 07/21/17 12:18 07/22/17 08:13 (Calcium Gluconate Inj) 1 gm UNSCH PRN IV PUSH 07/21/17 12:30 (Tylenol) 650 mg Q4H PRN PO 07/21/17 12:30 (Zofran Inj) 4 mg Q6H PRN IV PUSH 07/21/17 12:30 Lactated Ringer's 1,000 ml @ 3,000 mls/hr Q20M PRN IV 07/21/17 12:18 Sodium Chloride 1,000 ml @ 100 mls/hr Q10H PRN IV 07/21/17 12:38 (Xylocaine 1% Inj) 0.1 ml UNSCH X1 PRN I-DERMAL 07/21/17 12:30 07/24/17 12:29 (Bicitra Liq) 30 ml STENOTYPE OPERATOR PO 07/21/17 12:30 07/25/17 12:29 07/21/17 16:35 (fentaNYL INJ) 50 mcg Q1H PRN IV PUSH 07/21/17 12:30 (fentaNYL INJ) 100 mcg Q1H PRN IV PUSH 07/21/17 12:30 (NovoLOG SUPPLEMENTAL SCALE) 1 ACHS SLIDING SCALE SQ 07/21/17 17:00 (Stuartnatal Plus 3 ) 1 tab DAILY PO 07/22/17 09:00 07/22/17 09:21 Lactated Ringer's 1,000 ml @ 100 mls/hr Q10H IV 07/21/17 20:58 07/22/17 16:57 Oxytocin 500 ml @ 100 mls/hr UNSCH X1 PRN IV 07/21/17 21:00 07/22/17 20:59 (NS Flush) 2 ml BID IV FLUSH 07/21/17 21:00 (NS Flush) 2 ml UNSCH PRN IV FLUSH 07/21/17 16:00 (Mylicon Chew) 80 mg QID PRN PO 07/21/17 16:00 (Motrin) 600 mg Q6H PRN PO 07/21/17 16:00 (Percocet 5-325 Mg) 1 tab Q4H PRN PO 07/21/17 16:00 (Percocet 5-325 Mg) 2 tab Q4H PRN PO 07/21/17 16:00 (Nai-Colace) 2 tab Q12H PRN PO 07/21/17 16:00 (M-M-R Ii Inj) 0.5 ml ONCE ONCE SQ 07/22/17 16:00 07/22/17 16:01 (Boostrix Inj) 0.5 ml ONCE ONCE IM 07/22/17 16:00 07/22/17 16:01 (Zofran Inj) 4 mg Q6H PRN IV PUSH 07/21/17 16:00 Miscellaneous Information NO SYSTEMIC NARCOTICS TO BE GIVEN FO... UNSCH PRN .XX 07/21/17 18:30 07/22/17 18:29 (Narcan Inj) 0.4 mg UNSCH PRN IV PUSH 07/21/17 18:30 07/22/17 18:29 (Benadryl Inj) 25 mg Q6H PRN IV PUSH 07/21/17 18:30 07/22/17 18:29 (Benadryl) 50 mg Q6H PRN PO 07/21/17 18:30 07/22/17 18:29 Miscellaneous Information ALL NURSING DEPARTMENTS UNSCH PRN .XX 07/21/17 18:30 07/22/17 18:29 Assessment/Plan Assessment and Plan 21YO POD#1 following C/S at 37/3 weeks complicated by chronic HTN with severe features at presentation yesterday w/elevated BP at 190/110, protein in urine, normal Cr, Plts and LFTs and DM type 2. Presentation also complicated by pt non-compliance with treatment plan (i.e not taking aspirin as prescribed). Vital signs have normalized since delivery with last elevated BP 142/93 at 0200hrs. Fasting blood glucose at 90 at 8AM this morning. Pt nausea and vomiting last night are resolved this morning and is tolerating PO; pain controlled; on bed rest due to mag sulfate; trial of ambulation following that. Pt is voiding and has flatus but no BM yet. Lochia same as a period. No discharge from surgical wound. Physical exam benign. 1, Routine post-op care -3rd of 3 doses Ancef 2gm given this morning -Percocet and Motrin PRN pain -Zofran PRN nausea -Mother advised to hydrate and take PO -Advised to take showers for next 2 weeks -Advised pelvic rest for 6 weeks -Pt still deciding her contraception options -Pt to f/u with her [employer] in one week for incision check and HTN f/u 2. Chronic HTN -Mag sulfate 2g/hr per protocol until 24 hours -BPs have normalized overnight without any additional Labetalol -Continue to monitor -Labetalol PRN as required in hospital -Consider BB, CHALINO or ARB on discharge 3. DM type 2 -Fasting B this morning 0800 -Accuchecks QID -Low SSI -Consider restart of Metformin 500 mg BID in discharge Pt dw Ole Worthington MD R1 Jul 22, 2017 09:52
[2017-07-22] MEDS ORDERED: MEASLES, MUMPS, RUBELLA VACCINE 0.5 ML VIAL SQ ONE (16:00)
[2017-07-22] MEDS ORDERED: DIPHTH/TETANUS/ACEL PERTUSSIS (BOOSTER) 0.5 ML VIAL/PFS IM ONE (16:00)
[2017-07-22] MEDS: oxyCODONE/ACETAMINOPHEN 5 MG/325 MG TAB PO PRN ×2 (16:35→21:31)
[2017-07-22] MEDS: IBUPROFEN 600 MG TAB PO PRN (21:31)
[2017-07-22] MEDS: DOCUSATE SODIUM 50 MG/SENNA 8.6 MG TAB PO PRN (21:31)
[2017-07-23] MEDS: MAGNESIUM SULFATE 40 GM PREMIX 1,000 ML IV SCH ×2 (00:25→21:20)
[2017-07-23] MEDS: LACTATED RINGER'S 1000 ML INJ 1,000 ML IV SCH ×3 (00:25→19:09)
[2017-07-23 04:21] VITALS: BP 143/91; PULSE 76; RESP 18; TEMP 98.3
[2017-07-23] MEDS: IBUPROFEN 600 MG TAB PO PRN ×3 (05:19→22:28)
[2017-07-23] MEDS: oxyCODONE/ACETAMINOPHEN 5 MG/325 MG TAB PO PRN ×3 (05:19→22:28)
[2017-07-23 08:00] VITALS: BP 156/92; PULSE 80; RESP 18; TEMP 98.5
[2017-07-23] MEDS: INSULIN ASPART SUPPLEMENTAL SCALE SQ SCH ×4 (08:00→21:00)
--- NOTE | 2017-07-23 08:16 | HHI.OB ---
Subjective Post Operative Day: 2 Remarks Postoperative day # 2. AFVSS overnight. Incision not draining. Decreased lochia. Denies dysuria. No breast tenderness. She is feeding the baby via breast. Appetite good. No nausea or vomiting. Patient has not yet had a bowel movement. Ambulating well. Denies calf pain or shortness of breath. Otherwise , she is doing well this morning and has no other concerns. Objective Vitals/I&O Vital Signs Date Time Temp Pulse Resp B/P (MAP) Pulse Ox O2 Delivery O2 Flow Rate FiO2 07/23/17 04:21 98.3 76 18 143/91 (108) 07/22/17 23:59 99.0 83 18 142/83 (102) 07/22/17 20:15 98.1 86 18 157/84 (108) 07/22/17 17:00 97.9 87 16 160/85 (110) 07/22/17 15:00 18 07/22/17 15:00 88 127/74 (91) 07/22/17 14:00 87 127/70 (89) 07/22/17 14:00 18 07/22/17 13:00 90 07/22/17 13:00 90 132/81 (98) 97 07/22/17 12:58 98 07/22/17 12:58 16 07/22/17 12:01 89 130/75 (93) 07/22/17 12:00 18 07/22/17 11:35 91 96 07/22/17 11:30 90 97 07/22/17 11:25 92 98 07/22/17 11:20 93 99 07/22/17 11:15 91 99 07/22/17 11:10 92 99 07/22/17 11:05 93 98 07/22/17 11:01 93 149/81 (103) 07/22/17 11:00 90 18 99 07/22/17 10:55 98 07/22/17 10:55 92 07/22/17 10:50 95 07/22/17 10:50 99 07/22/17 10:45 98 07/22/17 10:45 92 07/22/17 10:40 99 07/22/17 10:40 93 07/22/17 10:35 95 07/22/17 10:35 99 07/22/17 10:30 91 07/22/17 10:30 99 07/22/17 10:25 87 07/22/17 10:25 98 07/22/17 10:20 99 07/22/17 10:20 87 07/22/17 10:15 87 07/22/17 10:15 98 07/22/17 10:10 89 07/22/17 10:10 98 07/22/17 10:05 88 98 07/22/17 10:00 18 07/22/17 10:00 88 145/88 (107) 98 07/22/17 10:00 88 07/22/17 09:55 89 99 07/22/17 09:50 87 99 07/22/17 09:45 95 99 07/22/17 09:40 89 98 07/22/17 09:35 90 98 07/22/17 09:30 95 99 07/22/17 09:25 89 99 07/22/17 09:20 94 99 07/22/17 09:15 91 98 07/22/17 09:11 87 137/88 (104) 07/22/17 09:10 89 99 07/22/17 09:05 91 99 07/22/17 09:00 16 07/22/17 09:00 87 140/91 (107) 99 07/22/17 09:00 87 07/22/17 08:55 84 99 07/22/17 08:50 87 99 07/22/17 08:45 88 99 07/22/17 08:40 87 99 07/22/17 08:35 88 98 07/22/17 08:30 89 99 07/22/17 08:25 85 98 07/22/17 08:20 84 98 07/22/17 08:15 84 99 Result Diagram: 07/22/17 0500 07/22/17 0500 Objective Remarks GENERAL: Well-nourished, well-developed patient. CARDIOVASCULAR: Regular rate and rhythm without murmurs, gallops, or rubs. RESPIRATORY: Breath sounds equal bilaterally. No accessory muscle use. ABDOMEN/GI: Abdomen soft, non-tender, bowel sounds present. Incision: Silver nitrate dressing. Dry and intact with a spot of old blood on the left edge of the dressing; there is mild tenderness but no erythema, induration or fluctuance. Fundus: Firm, non-tender at umbilicus. GENITOURINARY: Light to moderate bleeding. EXTREMITIES: No cyanosis or edema, non-tender, without signs of DVT. Medications and IVs Current Medications Medications (Trade) Dose Ordered Sig/Beverley Route Start Time Stop Time Status Last Admin Lactated Ringer's 1,000 ml @ 75 mls/hr [id number] IV 07/21/17 12:18 07/22/17 04:50 Magnesium Sulfate 1,000 ml @ 50 mls/hr Q20H IV 07/21/17 12:18 07/22/17 08:13 (Calcium Gluconate Inj) 1 gm UNSCH PRN IV PUSH 07/21/17 12:30 (Tylenol) 650 mg Q4H PRN PO 07/21/17 12:30 (Zofran Inj) 4 mg Q6H PRN IV PUSH 07/21/17 12:30 Lactated Ringer's 1,000 ml @ 3,000 mls/hr Q20M PRN IV 07/21/17 12:18 Sodium Chloride 1,000 ml @ 100 mls/hr Q10H PRN IV 07/21/17 12:38 (Xylocaine 1% Inj) 0.1 ml UNSCH X1 PRN I-DERMAL 07/21/17 12:30 07/24/17 12:29 (Bicitra Liq) 30 ml SPORTS TEACHER PO 07/21/17 12:30 07/25/17 12:29 07/21/17 16:35 (fentaNYL INJ) 50 mcg Q1H PRN IV PUSH 07/21/17 12:30 (fentaNYL INJ) 100 mcg Q1H PRN IV PUSH 07/21/17 12:30 (NovoLOG SUPPLEMENTAL SCALE) 1 ACHS SLIDING SCALE SQ 07/21/17 17:00 (Stuartnatal Plus 3 ) 1 tab DAILY PO 07/22/17 09:00 07/22/17 09:21 (NS Flush) 2 ml BID IV FLUSH 07/21/17 21:00 (NS Flush) 2 ml UNSCH PRN IV FLUSH 07/21/17 16:00 (Mylicon Chew) 80 mg QID PRN PO 07/21/17 16:00 (Motrin) 600 mg Q6H PRN PO 07/21/17 16:00 07/23/17 05:19 (Percocet 5-325 Mg) 1 tab Q4H PRN PO 07/21/17 16:00 07/23/17 05:19 (Percocet 5-325 Mg) 2 tab Q4H PRN PO 07/21/17 16:00 (Nai-Colace) 2 tab Q12H PRN PO 07/21/17 16:00 07/22/17 21:31 (Zofran Inj) 4 mg Q6H PRN IV PUSH 07/21/17 16:00 (Tenormin) 50 mg DAILY PO 07/23/17 09:00 Assessment/Plan Assessment and Plan 21YO POD#2 following C/S at 37/3 weeks complicated by chronic HTN with severe features at presentation yesterday w/ elevated BP at 190/110, protein in urine, normal Cr, Plts and LFTs and DM type 2. Presentation also complicated by pt non-compliance with treatment plan (i.e not taking aspirin as prescribed). Vital signs have normalized since delivery. Fasting blood sugar wnl. 1, Routine post-op care -Percocet and Motrin PRN pain -Zofran PRN nausea -Mother advised to hydrate and take PO -Advised pelvic rest for 6 weeks -Pt still deciding her contraception options, to discuss at clinic visit -Pt to f/u with her BALLET DANCER in one week for incision check and HTN f/u 2. Chronic HTN -Mag sulfate discontinued 24 hr -BPs have normalized with intermittent SBPs 150s, no symptoms -Continue to monitor -Labetalol 50mg PO daily initiated 07/23 3. DM Type 2 -Fasting BG: wnl -Accuchecks QID -Low SSI -Restart Metformin 500 mg BID , pt to f/u with PCP NICHOLAS Meza Discharge Planning Pending normalization of BPs Likely d/c today or tomorrow Maryann King MD R2 Jul 23, 2017 08:16
[2017-07-23] MEDS: MULTIVIT/MIN/PREN/FOL AC/IRON PRENATAL TAB PO SCH (08:33)
[2017-07-23] MEDS: ATENOLOL 50 MG TAB PO SCH (08:33)
[2017-07-23 11:00] VITALS: BP 154/89; PULSE 80
[2017-07-23] MEDS: DOCUSATE SODIUM 50 MG/SENNA 8.6 MG TAB PO PRN (16:24)
[2017-07-23 16:44] VITALS: BP 155/94; PULSE 81; RESP 20
[2017-07-23] MEDS: SODIUM CHLORIDE 0.9% FLUSH 10 ML FLUSH IV FLUSH SCH (19:09)
[2017-07-23 20:02] VITALS: BP 159/106; PULSE 76; RESP 19; TEMP 98.4
[2017-07-24 00:02] VITALS: BP 152/91; PULSE 76; RESP 18; TEMP 98.1
[2017-07-24 03:53] VITALS: BP 167/97; PULSE 86; RESP 18; TEMP 98.1
[2017-07-24] MEDS: oxyCODONE/ACETAMINOPHEN 5 MG/325 MG TAB PO PRN ×2 (05:07→13:33)
[2017-07-24] MEDS: IBUPROFEN 600 MG TAB PO PRN ×2 (05:07→13:33)
[2017-07-24 08:00] VITALS: BP 158/93; PULSE 87; RESP 18; TEMP 98.2
[2017-07-24] MEDS: INSULIN ASPART SUPPLEMENTAL SCALE SQ SCH ×4 (08:00→21:00)
--- NOTE | 2017-07-24 08:24 | HHI.OB ---
Subjective Post Operative Day: 3 Remarks Ms Ken had no acute events overnight; however, her BPs remain elevated in 150s/90s-106 overnight and 167/97 this morning on Atenolol 50mg daily started yesterday. Pt had a WEAVER earlier that is gone on interview. There are no visual disturbances, no dizziness. Pt pain is controlled, ambulating, taking PO, voiding and flatus, but no BM yet. Lochia is decreasing. There is no incision pain. Pt is working to breastfeed and pumping. Denies CP, SOB, N/V/D, and DVT leg pain. Objective Vitals/I&O Vital Signs Date Time Temp Pulse Resp B/P (MAP) Pulse Ox O2 Delivery O2 Flow Rate FiO2 07/24/17 03:53 98.1 86 18 167/97 (120) 07/24/17 00:02 98.1 76 18 152/91 (111) 07/23/17 20:02 98.4 76 19 159/106 (123) 07/23/17 16:44 81 20 155/94 (114) 07/23/17 11:00 80 154/89 (110) Result Diagram: 07/22/17 0500 07/22/17 0500 Objective Remarks GENERAL: Well-nourished, well-developed patient lying in bad in NAD. CARDIOVASCULAR: Regular rate and rhythm without murmurs, gallops, or rubs. RESPIRATORY: Breath sounds equal bilaterally. No accessory muscle use. No increased WOB. ABDOMEN/GI: Abdomen soft, mildly tender to palpation, bowel sounds present. Incision: Silver nitrate dressing. Dry and intact with an enlarged spot of old blood on the left edge of the dressing (about half-dollar size), increased in size since yesterday; there is mild tenderness but no erythema, induration or fluctuance. Incision sits under a fold in the pannus. Fundus: Firm, non-tender at umbilicus. GENITOURINARY: Light to moderate bleeding. EXTREMITIES: No cyanosis or edema, non-tender, without signs of DVT. Medications and IVs Current Medications Medications (Trade) Dose Ordered Sig/Beverley Route Start Time Stop Time Status Last Admin Lactated Ringer's 1,000 ml @ 75 mls/hr [id number] IV 07/21/17 12:18 07/22/17 04:50 Magnesium Sulfate 1,000 ml @ 50 mls/hr Q20H IV 07/21/17 12:18 07/22/17 08:13 (Calcium Gluconate Inj) 1 gm UNSCH PRN IV PUSH 07/21/17 12:30 (Tylenol) 650 mg Q4H PRN PO 07/21/17 12:30 (Zofran Inj) 4 mg Q6H PRN IV PUSH 07/21/17 12:30 Lactated Ringer's 1,000 ml @ 3,000 mls/hr Q20M PRN IV 07/21/17 12:18 Sodium Chloride 1,000 ml @ 100 mls/hr Q10H PRN IV 07/21/17 12:38 (Xylocaine 1% Inj) 0.1 ml UNSCH X1 PRN I-DERMAL 07/21/17 12:30 07/24/17 12:29 (Bicitra Liq) 30 ml CHEMICAL OPERATIONS AND TRAINING PO 07/21/17 12:30 07/25/17 12:29 07/21/17 16:35 (fentaNYL INJ) 50 mcg Q1H PRN IV PUSH 07/21/17 12:30 (fentaNYL INJ) 100 mcg Q1H PRN IV PUSH 07/21/17 12:30 (NovoLOG SUPPLEMENTAL SCALE) 1 ACHS SLIDING SCALE SQ 07/21/17 17:00 (Stuartnatal Plus 3 ) 1 tab DAILY PO 07/22/17 09:00 07/23/17 08:33 (NS Flush) 2 ml BID IV FLUSH 07/21/17 21:00 (NS Flush) 2 ml UNSCH PRN IV FLUSH 07/21/17 16:00 (Mylicon Chew) 80 mg QID PRN PO 07/21/17 16:00 (Motrin) 600 mg Q6H PRN PO 07/21/17 16:00 07/24/17 05:07 (Percocet 5-325 Mg) 1 tab Q4H PRN PO 07/21/17 16:00 07/24/17 05:07 (Percocet 5-325 Mg) 2 tab Q4H PRN PO 07/21/17 16:00 (Nai-Colace) 2 tab Q12H PRN PO 07/21/17 16:00 07/23/17 16:24 (Zofran Inj) 4 mg Q6H PRN IV PUSH 07/21/17 16:00 (Tenormin) 50 mg DAILY PO 07/23/17 09:00 07/23/17 08:33 Assessment/Plan Problem List: (1) Pre-eclampsia superimposed on chronic hypertension, antepartum ICD Codes: O11.9 - Pre-existing hypertension with pre-eclampsia, unspecified trimester; O10.019 - Pre-existing essential hypertension complicating , unspecified trimester Status: Acute Plan: Pt with chronic HTN with severe features on admission including proteinuria, LFTs, Plts, Cr wnl (2) DM2 (diabetes mellitus, type 2) ICD Codes: E11.9 - Type 2 diabetes mellitus without complications Status: Chronic Qualifiers: Qualified Codes: E11.8 - Type 2 diabetes mellitus with unspecified complications Plan: Pt diagnosed 1 yr ago; diet controlled before , but then placed on Metformin 500mg BID during -Metformin held on admission -Blood glucose range 91-142 last 24 hours -Continue accuchecks q4h (3) Chronic hypertension ICD Codes: I10 - Essential (primary) hypertension Status: Chronic Plan: Pt diagnosed with HTN approx 1 year ago; unknown if pt took medication prior to ; pt on Labetalol 400mg BID during due to HTN with severe features during -Pt given IV Labetalol antepartum and was refractory to increased dosing prior to decision for C/S -Pt BP normal to mildly elevated first 24 hours following delivery -Atenolol 50mg PO daily started 07/23 due to persistently elevated BPs (4) 37 weeks gestation of ICD Codes: Z3A.37 - 37 weeks gestation of Plan: Primary C/S performed as above Assessment and Plan 21YO POD#3 following C/S at 37/3 weeks complicated by chronic HTN with severe features at presentation 07/21/17 w/ elevated BP at 190/110, protein in urine, normal Cr, Plts and LFTs and DM type 2. Presentation also complicated by pt non-compliance with treatment plan (i.e not taking aspirin as prescribed). Vital signs have normalized since delivery. Fasting blood sugar wnl. 1, Routine post-op care -Percocet and Motrin PRN pain -Zofran PRN nausea -Mother advised to hydrate and take PO -Advised pelvic rest for 6 weeks -Pt still deciding her contraception options, to discuss at clinic visit -Pt to f/u with her WHOLESALER in one week for incision check and HTN f/u 2. Chronic HTN -Mag sulfate discontinued 24 hr -BPs elevated 150s/90s-106 overnight and 167/97 this morning; WEAVER last night -Atenolol 50mg PO daily initiated 07/23 -Continue to monitor 3. DM Type 2 -B-147 last 24 hours -Accuchecks q4h -Low SSI--no insulin provided last 24 hours -Restart Metformin 500 mg BID , pt to f/u with PCP Dispo: pending normalization of BPs Dw Hernando Corey and Khang King Discharge Planning Pending normalization of BPs Likely d/c today or tomorrow Ole Samuels MD R1 Jul 24, 2017 08:24
[2017-07-24] MEDS: ATENOLOL 50 MG TAB PO SCH (09:38)
[2017-07-24] MEDS: MULTIVIT/MIN/PREN/FOL AC/IRON PRENATAL TAB PO SCH (09:38)
[2017-07-24] MEDS: DOCUSATE SODIUM 50 MG/SENNA 8.6 MG TAB PO PRN (09:38)
[2017-07-24 12:00] VITALS: BP 145/89; PULSE 77; RESP 20; TEMP 98.4
[2017-07-24] MEDS ORDERED: ATENOLOL 50 MG TAB PO ONE (14:15)
[2017-07-24 16:00] VITALS: BP 153/88; PULSE 73; RESP 20; TEMP 98
[2017-07-24 20:00] VITALS: BP 154/94; PULSE 105; RESP 18; TEMP 98.1
[2017-07-25] VITALS: BP 157/92; PULSE 76; RESP 18; TEMP 97.7
[2017-07-25] MEDS: oxyCODONE/ACETAMINOPHEN 5 MG/325 MG TAB PO PRN ×2 (02:13→06:08)
[2017-07-25] MEDS: DOCUSATE SODIUM 50 MG/SENNA 8.6 MG TAB PO PRN (02:14)
[2017-07-25] MEDS: IBUPROFEN 600 MG TAB PO PRN (02:14)
[2017-07-25 04:41] VITALS: BP_SYST 155; BP_SYST 160; BP_DIAS 80; BP_DIAS 85; PULSE 74; RESP 20; TEMP 98.2
[2017-07-25] MEDS: INSULIN ASPART SUPPLEMENTAL SCALE SQ SCH (08:00)
[2017-07-25] MEDS ORDERED: OXYC1TAB63 PO (08:08)
[2017-07-25] MEDS ORDERED: IBUP-232 PO (08:08)
[2017-07-25] MEDS ORDERED: ATEN50TA PO (08:08)
--- NOTE | 2017-07-25 08:08 | HHI.DCPOC ---
Discharge Care Plan Diagnosis: (1) delivery, delivered, current hospitalization (2) Pre-eclampsia superimposed on chronic hypertension, antepartum (3) DM2 (diabetes mellitus, type 2) (4) Chronic hypertension Report Symptoms to Your Doctor -Temperature above 100.5 degrees -Redness, of incision or excessive or foul smelling drainage -Unusual pain or calf pain -Increased vaginal bleeding -Painful or difficulty urinating -Feelings of extreme sadness or anxiety after 2 weeks Goals to Promote Your Health * To prevent worsening of your condition and complications * To maintain your health at the optimal level Directions to Meet Your Goals Take your medications as prescribed Follow your dietary instruction Follow activity as directed Ensure plenty of rest for recovery Drink fluids for hydration Keep your appointments as scheduled Take your immunizations and boosters as scheduled If your symptoms worsen call your PCP, if no PCP go to Urgent Care Center or Emergency Room Smoking is Dangerous to Your Health. Avoid second hand smoke Call the 24-hour crisis hotline for domestic abuse at Abdullahi Zamora MD R2 Jul 25, 2017 08:08
[2017-07-25 08:23] VITALS: BP 153/87; PULSE 73; RESP 16; TEMP 98.1
[2017-07-25] MEDS: MULTIVIT/MIN/PREN/FOL AC/IRON PRENATAL TAB PO SCH (08:26)
[2017-07-25] MEDS ORDERED: ATEN100T7 PO (08:28)
[2017-07-25] MEDS ORDERED: ATENOLOL 50 MG TAB PO SCH (09:00)
--- NOTE | 2017-07-25 09:36 | HHI.OB ---
Subjective Remarks 21 year old female s/p C/S at 37 wks gestation for pre-eclampsia superimposed on chronic HTN, POD 4. BP ranging 145-160/85-89. Patient reports she is feeling well. Bleeding is decreasing and pain is well-controlled. She is breast feeding and bonding well with baby. Ambulating without difficulties. She is tolerating a diet without nausea or vomiting. She has not had a bowel movement. She has passed gas. Denies chest pain, dysuria, shortness of breath, or calf pain. Objective Vitals/I&O Vital Signs Date Time Temp Pulse Resp B/P (MAP) Pulse Ox O2 Delivery O2 Flow Rate FiO2 07/25/17 04:41 155/80 (105) 07/25/17 04:41 98.2 74 20 160/85 (110) 07/25/17 00:00 97.7 76 18 157/92 (113) 07/24/17 20:00 98.1 105 18 154/94 (114) 07/24/17 16:00 73 20 153/88 (109) 07/24/17 16:00 98.0 07/24/17 12:00 98.4 77 20 145/89 (107) Result Diagram: 07/22/17 0500 07/22/17 0500 Objective Remarks GENERAL: Well-nourished, well-developed patient lying in bad in NAD. CARDIOVASCULAR: Regular rate and rhythm without murmurs, gallops, or rubs. RESPIRATORY: Breath sounds equal bilaterally. No accessory muscle use. No increased WOB. ABDOMEN/GI: Abdomen soft, mildly tender to palpation, bowel sounds present. Incision: Silver nitrate dressing. Incision c/d/i. Fundus: Firm, mildly tender at umbilicus. GENITOURINARY: Light to moderate bleeding. EXTREMITIES: No cyanosis or edema, non-tender, without signs of DVT. Medications and IVs Current Medications Medications (Trade) Dose Ordered Sig/Beverley Route Start Time Stop Time Status Last Admin Lactated Ringer's 1,000 ml @ 75 mls/hr [id number] IV 07/21/17 12:18 07/22/17 04:50 Magnesium Sulfate 1,000 ml @ 50 mls/hr Q20H IV 07/21/17 12:18 07/22/17 08:13 (Calcium Gluconate Inj) 1 gm UNSCH PRN IV PUSH 07/21/17 12:30 (Tylenol) 650 mg Q4H PRN PO 07/21/17 12:30 (Zofran Inj) 4 mg Q6H PRN IV PUSH 07/21/17 12:30 Lactated Ringer's 1,000 ml @ 3,000 mls/hr Q20M PRN IV 07/21/17 12:18 Sodium Chloride 1,000 ml @ 100 mls/hr Q10H PRN IV 07/21/17 12:38 (Bicitra Liq) 30 ml [employer] PO 07/21/17 12:30 07/25/17 12:29 07/21/17 16:35 (fentaNYL INJ) 50 mcg Q1H PRN IV PUSH 07/21/17 12:30 (fentaNYL INJ) 100 mcg Q1H PRN IV PUSH 07/21/17 12:30 (NovoLOG SUPPLEMENTAL SCALE) 1 ACHS SLIDING SCALE SQ 07/21/17 17:00 (Stuartnatal Plus 3 ) 1 tab DAILY PO 07/22/17 09:00 07/25/17 08:26 (NS Flush) 2 ml BID IV FLUSH 07/21/17 21:00 (NS Flush) 2 ml UNSCH PRN IV FLUSH 07/21/17 16:00 (Mylicon Chew) 80 mg QID PRN PO 07/21/17 16:00 (Motrin) 600 mg Q6H PRN PO 07/21/17 16:00 07/25/17 02:14 (Percocet 5-325 Mg) 1 tab Q4H PRN PO 07/21/17 16:00 07/25/17 06:08 (Percocet 5-325 Mg) 2 tab Q4H PRN PO 07/21/17 16:00 (Nai-Colace) 2 tab Q12H PRN PO 07/21/17 16:00 07/25/17 02:14 (Zofran Inj) 4 mg Q6H PRN IV PUSH 07/21/17 16:00 (Tenormin) 100 mg DAILY PO 07/25/17 09:00 07/25/17 08:26 Assessment/Plan Problem List: (1) Pre-eclampsia superimposed on chronic hypertension, antepartum ICD Codes: O11.9 - Pre-existing hypertension with pre-eclampsia, unspecified trimester; O10.019 - Pre-existing essential hypertension complicating , unspecified trimester Status: Acute (2) DM2 (diabetes mellitus, type 2) ICD Codes: E11.9 - Type 2 diabetes mellitus without complications Status: Chronic Qualifiers: Qualified Codes: E11.8 - Type 2 diabetes mellitus with unspecified complications (3) Chronic hypertension ICD Codes: I10 - Essential (primary) hypertension Status: Chronic (4) 37 weeks gestation of ICD Codes: Z3A.37 - 37 weeks gestation of Plan: Primary C/S performed as above Assessment and Plan 21YO POD#4 following C/S at 37/3 weeks for chronic hypertension with superimposed pre-eclampsia with severe features. BP at presentation 190/110, protein in urine, normal Cr, Plts and LFTs and DM type 2. Presentation also complicated by pt non-compliance with treatment plan (i.e not taking aspirin as prescribed). 1, Routine post-op care -Percocet and Motrin PRN pain -Zofran PRN nausea -Mother advised to hydrate and take PO -Advised pelvic rest for 6 weeks -Pt still deciding her contraception options, to discuss at clinic visit -Pt to f/u with her [facility] in one week for incision check and HTN f/u 2. Chronic HTN -Mag sulfate discontinued 24 hr -BPs still slightly elevated 145-160 / 85-89 -Discharge with atenolol-chlorthalidone 100-25 mg PO daily -RTC for BP check in 1 week -F/u with PCP for continued BP management 3. DM Type 2 -Restart Metformin 500 mg BID on discharge, pt to f/u with PCP Dispo: home today 07/[address] Derrick Zamora,Abdullahi ANN R2 Jul 25, 2017 09:36
[2017-07-25 11:24] VITALS: BP 139/79; PULSE 67
== END 2017-07-25 12:07 | disposition home or self-care (01) | DRG 766 ==
LOC: HOBED 11:49 → H2EB 12:36 → H2EA 17:21 → H1EA 07-22 16:30
PROVIDERS: ADMIT Obstetrics & Gynecology Obstetrics; ATTEND Obstetrics & Gynecology Obstetrics
PROC: 10D00Z1 Extraction of Products of Conception, Low, Open Approach (ICD-10-PCS; principal; 2017-07-21)
DX: O11.4 Pre-existing hypertension with pre-eclampsia, complicating childbirth (principal); O24.12 Pre-existing type 2 diabetes mellitus, in childbirth; O10.02 Pre-existing essential hypertension complicating childbirth; E11.9 Type 2 diabetes mellitus without complications; Z79.84 Long term (current) use of oral hypoglycemic drugs; Z91.19 Patient's noncompliance with other medical treatment and regimen; Z3A.37 37 weeks gestation of pregnancy; Z37.0 Single live birth
CPT/HCPCS: 59025; 80053; 80307; 81001; 82570; 82948; 83735; 84156; 84550; 85025; 85027; 86900; 86901; 87081; 87150; 88307; 90715; 96374; G0481; J0690; J1100; J2274; J2370; J2405; J2590; J3475; J7120